=== PATIENT | female | born 1935 | race Caucasian/White ===

== ENCOUNTER 2017-09-18 12:37 | Observation (INO) | payer MEDICARE, OTHER ==
[2017-09-18 13:53] LABS: #Basophils 0.1 thou/uL (0.0-0.2); #Eosinphils 0.1 thou/uL (0.0-0.7); #Lymphocytes 2.2 thou/uL (1.20-3.40); #Neutrophils 6.9 thou/uL (1.40-6.50); %Basophils 0.8 % (0.0-1.0); %Eosinophils 0.5 % (0.0-10.0); %Lymphocytes 21.3 % (21.0-51.0); %Monocytes 10.1 % (0.0-10.0); %Neutrophils 67.3 % (42.0-75.0); Hemoglobin 13.4 g/dL (12.0-16.0); Mean Corpuscular HGB CONC 33.1 g/dL (32.0-36.0); Mean Corpuscular Volume 93.6 fl (81.0-99.0); Mean Platelet Volume 8.5 fL (7.4-10.4); Platelet Count 242 thou/uL (130-400); RBC Distribution Width 11.3 % (11.5-14.5); Red Blood Cell (RBC) Count 4.33 mill/uL (4.20-5.40); White Blood Cell (WBC) Count 10.2 thou/uL (4.8-10.8)
--- NOTE | 2017-09-18 13:59 | RAD ---
SINGLE VIEW CHEST: Date: 09/18/17 COMPARISON: 08/06/15. HISTORY: Frequent falls. FINDINGS: Single view of the chest shows a normal sized cardiomediastinal silhouette. There is no evidence of c onsolidation, mass, or pleural effusion. Degenerative changes are seen in the spine and shoulders. IMPRESSION: No evidence of acute cardiopulmonary disease. POS: [facility]
--- NOTE | 2017-09-18 14:13 | CT ---
CT BRAIN: HISTORY: An 82-year-old with a history of confusion. FINDINGS: Noncontrast-enhanced CT images of the brain are obtained. Images demonstrate some cortical atrophy and deep white matter ischemic changes. No evidence of acut e intracranial masses, hemorrhages, strokes, or contusions seen. Ventricles are of normal size. IMPRESSION: Unremarkable CT brain. POS: [facility]
[2017-09-18 14:20] LABS: ALT (SGPT) 36 U/L (8-55); AST (SGOT) 41 U/L (5-34); Albumin 4.1 g/dL (3.4-4.8); Alkaline Phosphatase 73 U/L (40-150); Anion Gap 15 mmol/L (10-20); BUN (Urea Nitrogen) 13 mg/dL (9.8-20.1); Calc. Creatinine Clearance 0 mL/min (70-130); Calcium 9.3 mg/dL (7.8-10.44); Carbon Dioxide 25 mmol/L (23-31); Chloride 100 mmol/L (98-107); Estimated GFR-MDRD 76; Globulin 3.2 g/dL (2.4-3.5); Glucose 91 mg/dL (83-110); Potassium 3.5 mmol/L (3.5-5.1); Protein, Total 7.3 g/dL (6.0-8.3); Sodium 136 mmol/L (136-145)
[2017-09-18 15:21] LABS: Bilirubin Negative (Negative); Blood, Urine Negative (Negative); Clarity CLOUDY (Clear); Glucose, Urine (Dipstick) Negative (Negative); Leukocyte Large (Negative); Nitrite Negative (Negative); Protein, Urine (Dipstick) 30 mg/dL (Neg-Trace); Specific Gravity, Urine 1.019 (1.002-1.036); pH, Urine 7.5 (5.0-9.0)
[2017-09-18 15:22] LABS: Bacteria/HPF Rare-Few HPF (None Seen); Pathc Cast-AUWi Flag 2.32 (0-2.49)
[2017-09-18 15:24] LABS: RBC/HPF 0-3 HPF (0-3); Yeast-AUWi Flag 43.4 (0-25.0)
[2017-09-18 15:36] LABS: Crystals/HPF None Seen HPF (Negative); Hyaline Casts/LPF 0-3 HYALINE CAST LPF (0-3 Hyaline); Yeast-All Forms None Seen HPF (None Seen)
[2017-09-18 17:24] VITALS: BMI 25.0
[2017-09-18] MEDS ORDERED: Acetaminophen 325 MG TAB PO PRN (17:48)
[2017-09-18] MEDS ORDERED: cefTRIAXone\\ROCEPHIN 1 GM in Sodium Chloride 0.9% 100 ML IVPB SCH (18:15)
[2017-09-18] MEDS: Sodium Chloride 0.9% 1,000 ML IV SCH (18:23)
[2017-09-18] MEDS ORDERED: cefTRIAXone\\ROCEPHIN 1 GM, Syringe 0.4 ML in Sterile Water 9.6 ML SLOW IVP SCH (18:30)
[2017-09-18] MEDS: Docusate 100 MG CAP PO SCH (20:37)
[2017-09-18] MEDS ORDERED: PARoxetine 20 MG TAB PO SCH (21:00)
[2017-09-18] MEDS ORDERED: Rivaroxaban 10 MG TAB PO SCH (21:00)
[2017-09-19] MEDS: Sodium Chloride 0.9% 1,000 ML IV SCH (05:01)
[2017-09-19 06:05] LABS: #Basophils 0.1 thou/uL (0.0-0.2); #Eosinphils 0.1 thou/uL (0.0-0.7); #Lymphocytes 2.5 thou/uL (1.20-3.40); #Monocytes 0.9 thou/uL (0.11-0.59); #Neutrophils 5.9 thou/uL (1.40-6.50); %Basophils 0.8 % (0.0-1.0); %Eosinophils 1.3 % (0.0-10.0); %Lymphocytes 26.2 % (21.0-51.0); %Neutrophils 61.8 % (42.0-75.0); Mean Corpuscular HGB CONC 33.6 g/dL (32.0-36.0); Mean Corpuscular Hemoglobin 30.6 pg (27.0-31.0); Mean Platelet Volume 8.2 fL (7.4-10.4); Platelet Count 217 thou/uL (130-400); RBC Distribution Width 11.2 % (11.5-14.5); Red Blood Cell (RBC) Count 3.92 mill/uL (4.20-5.40); White Blood Cell (WBC) Count 9.5 thou/uL (4.8-10.8)
[2017-09-19 07:05] LABS: Anion Gap 11 mmol/L (10-20); BUN (Urea Nitrogen) 10 mg/dL (9.8-20.1); Calc. Creatinine Clearance 68 mL/min (70-130); Calcium 8.6 mg/dL (7.8-10.44); Carbon Dioxide 25 mmol/L (23-31); Chloride 104 mmol/L (98-107); Estimated GFR-MDRD 86; Glucose 91 mg/dL (83-110); Potassium 3.3 mmol/L (3.5-5.1); Sodium 137 mmol/L (136-145)
[2017-09-19] MEDS: Docusate 100 MG CAP PO SCH (08:43)
[2017-09-19] MEDS ORDERED: Bupropion 150 MG XL TAB PO SCH (09:00)
[2017-09-19] MEDS ORDERED: Potassium Chloride 20 MEQ TAB PO SCH (09:30)
[2017-09-19] MEDS ORDERED: Nebivolol HCl 5 MG TAB PO SCH (12:00)
[2017-09-19] MEDS ORDERED: cefTRIAXone\\ROCEPHIN 1 GM, Syringe 0.4 ML in Sterile Water 9.6 ML SLOW IVP SCH (12:00)
[2017-09-19 12:19] VITALS: TEMP 98.2
[2017-09-19 12:53] VITALS: BP 191/81
--- NOTE | 2017-09-19 12:53 | DIS ---
DATE OF ADMISSION: 09/18/2017 DATE OF DISCHARGE: 09/19/2017 DISCHARGE DIAGNOSES: Dehydration, mild urinary tract infection, and depression and anxiety. HOSPITAL COURSE: Patient is a very pleasant 82-year-old female, who initially presented to the [facility] yesterday for some confusion; however, was noted upon further talking to her that the patient has been very severely depressed given her situation. Patient currently lives with her , who is bedbound due to amputation and the patient has been taking care of him and apparently is becoming dayna y exhausted. Patient has seen a psychiatrist last week, who told the patient's family that she neede d to be taken out of the situation or else she will undergo a psychotic breakdown. Patient's antidep ressants per PCP were increased; however, patient had severe side effects, then her medications were again decreased to her baseline dosage and her Effexor was discontinued, which was a new medication. Patient, initially in the ER, underwent a CAT scan of the head, which was negative. Thyroid was neg ative. In essential, her WBCs and her chemistry panel was completely normal. Her vitamin B12 level was also normal. A vitamin D level is still pending. Cortisol was also normal. The patient was put back on her normal medications. It seems like she did have a UTI in the ER; however, she had many s quamous epithelial cells, most likely not a true UTI. However, the patient was treated with 2 days o f IV and 1 day of p.o. antibiotics. Upon discharge, the patient appears to look much better improvem ent compared to yesterday. I recommended the patient to stay away from her home for the weekend to s alyssa with her family and may be patient already has made arrangements to move into an assisted living, which will take a lot of burden off of her in regard to cooking and cleaning for her . Major nt states that that was the main stressor that was bothering her. DISCHARGE MEDICATIONS: As following, paroxetine 10 mg p.o. at bedtime, Xarelto 20 mg p.o. at bedtime , Bystolic 5 mg p.o. daily, Cipro 250 mg p.o. b.i.d. x1 day, Wellbutrin 150 mg p.o. daily, losartan/h ydrochlorothiazide 50/12.5 mg 1 p.o. daily. Patient will be discharged home. She will follow up wit h her PCP as an outpatient. PHYSICAL EXAMINATION: VITAL SIGNS: 98.2, 93, she is room air 98%, 106/79 blood pressure. GENERAL: She is awake, alert, and oriented x3, appears much more cooperative and much more cohesive. HEENT: Normocephalic, atraumatic. No lymphadenopathy noted. CARDIOVASCULAR: S1 and S2 present. No murmurs, rubs, or gallops. LUNGS: Clear to auscultation. No rhonchi or wheezes noted. ABDOMEN: Soft and nontender. Bowel sounds are present x2. EXTREMITIES: No edema. NEUROLOGIC/PSYCHIATRIC: In terms of neuro and psyche, she is oriented x3, appears to be much more ca lmer. Patient feels better and also family member states that she is at baseline. She is going to be discharged home. Follow up with PCP.
--- NOTE | 2017-09-20 09:45 | HP ---
DATE OF ADMISSION: 09/18/2017 PRIMARY CARE PHYSICIAN: Dr. Dayton Owens. CHIEF COMPLAINT: Acute confusion. HISTORY OF PRESENT ILLNESS: Patient is an 82-year-old female with past medical history of anxiety an d depression who presented in atrial fibrillation on anticoagulation who presented to the ER with acu te confusion. Patient's daughters who are at the bedside stated that the patient has been under a lo t of stress recently. Furthermore, they stated that the patient's is bedbound due to an ampu tation and the patient has been very stressed trying to meet his requirements and his needs. The anabel rossi has been seen by her primary care doctor who recommended a psychiatry evaluation given patient's worsening anxiety and depression. The patient was seen by psychiatry about a couple weeks ago who r ecommended to the family to remove the patient out of her current situation, if not, the patient woul d suffer a psychotic breakdown. Patient's family furthermore also states that she did have some simran tional of new antidepressant medications including Effexor and doubling up some of her current medica tions, which caused her to be very tremulous or tremors and also worsening memory and worsening confu kourtney. Patient currently denies any chest pain, abdominal pain, any nausea, vomiting or diarrhea. Eloy zayas does feel that she has been under lot of stress and she does tell me that in order to help hers elf, she has gone ahead and has registered for them to live in an assisted living, so that she does n ot have to prepare meals for her , which according to her, is very stressful and creates a lot of stress on her especially the meal preparations, going to the groceries, buying groceries so on an d so forth. PAST MEDICAL HISTORY: Anxiety, depression and atrial fibrillation on anticoagulation. PAST SURGICAL HISTORY: Patient has had a postobstructive ileus with an obstruction, which was laparo scopically fixed. SOCIAL HISTORY: The patient denies any smoking, alcohol or drug use. MEDICATIONS: She takes losartan 12.5 mg at noon, Xarelto 20 mg daily, Bystolic 5 mg daily, Paxil 10 mg daily, and Wellbutrin 150 mg daily. REVIEW OF SYSTEMS: The following complete review of systems was negative, unless otherwise mentioned in the HPI or below: Constitutional: Weight loss or gain, ability to conduct usual activities. Skin: Rash, itching. Eyes: Double vision, pain. ENT/Mouth: Nose bleeding, neck stiffness, pain, tenderness. Cardiovascular: Palpitations, dyspnea on exertion, orthopnea. Respiratory: Shortness of breath, wheezing, cough, hemoptysis, fever or night sweats. Gastrointestinal: Poor appetite, abdominal pain, heartburn, nausea, vomiting, constipation, or diarr hea. Genitourinary: Urgency, frequency, dysuria, nocturia. Musculoskeletal: Pain, swelling. Neurologic/Psychiatric: Anxiety, depression. Allergy/Immunologic: Skin rash, bleeding tendency. ALLERGIES: She has no known drug allergies. PHYSICAL EXAMINATION: VITAL SIGNS: Patient, 99.0, 87, 16, 95% on room air, 156/84. GENERAL: She is awake, alert, oriented x3. CARDIOVASCULAR: S1, S2 present. No murmurs, rubs or gallops. ABDOMEN: Soft, nontender. Bowel sounds are present x2. RESPIRATION: Clear. No rhonchi, wheezes noted. EXTREMITIES: No edema. Pedal pulse present x2. NEUROLOGIC: No focal neurological abnormalities noted. PSYCHIATRIC: The patient does have a little bit of tremors. She has good insight; however, she does appear a little depressed or has a flat affect. LABORATORY DATA: WBC of 10.2, hemoglobin of 13.4, hematocrit of 40.5, platelets of 242. Chemistry: Sodium of 136, potassium of 3.5, BUN of 13, creatinine 0.73. Mild elevation of AST at 41. Her daphne min B12 was 1227. TSH was 1.8 and cortisol was 12.70. Her UA that was done in the ER did indicate t hat she did have some leukocyte esterase; however, the patient did have 11-20 squamous epithelial louis ls. ASSESSMENT AND PLAN: The patient is a very pleasant 82-year-old female who initially presented to [facility] for concerns of acute confusion. 1. Acute metabolic encephalopathy, possibly due to her underlying anxiety and depression versus medi cation related versus mild urinary tract infection. We will admit the patient to the hospital [facility] for observations and will give IV hydration. We will continue her medications that were the decr eased aversion of her original antidepressant medication and not her increased medication that was do ne by her PCP. We will continue that and also we will continue IV antibiotics; however, I do not mirian lly think this is a urinary tract infection. It is probably most likely an uncomplicated urinary tra ct infection. CT of the head that was done in the ER, which was negative. Chest x-ray, no acute abn ormalities noted. We will continue to monitor. 2. Atrial fibrillation, rate controlled. We will continue the Xarelto. 3. Deep venous thrombosis prophylaxis. We will put the patient on sequential compression devices or heparin subcu. I spoke with the patient's family, maybe the patient might benefit from either volun teering or registering herself into an inpatient psychiatric facility; however, at this time, the anabel rossi's family feels that if they are able to keep her away from their father for a few days, they fee l that she would improve greatly. I also spoke with the patient, the patient stated that she has bee n under a lot of stress, which is most likely attributed through her 's debility of not helpin g himself due to the amputation. Patient also further states that her moving into an assisted living will help her mentally, which most importantly is that she will not have to prepare meals for her hu sband or do any grocery shopping.
== END 2017-09-19 12:15 | disposition home or self-care (01) ==
LOC: ERS 12:37 → 2SE 15:32
PROVIDERS: ADMIT Internal Medicine; ATTEND Internal Medicine
DX: G93.41 Metabolic encephalopathy (principal); E86.0 Dehydration; N39.0 Urinary tract infection, site not specified; F41.8 Other specified anxiety disorders; I48.91 Unspecified atrial fibrillation; Z79.01 Long term (current) use of anticoagulants; Z79.899 Other long term (current) drug therapy; Z98.890 Other specified postprocedural states
CPT/HCPCS: 70450; 71045; 80048; 80053; 82306; 82533; 82607; 84443; 85025 ×2; 97139 ×2; 97530; 97535; 99285; G0378; G8987; G8988; 36415; 81003; 81015; A4216; J0696

== ENCOUNTER 2018-04-22 14:50 | Observation (INO) | payer MEDICARE, OTHER ==
[2018-04-22 15:19] LABS: #Basophils 0.1 thou/uL (0.0-0.2); #Eosinphils 0.1 thou/uL (0.0-0.7); #Monocytes 0.7 thou/uL (0.11-0.59); #Neutrophils 7.2 thou/uL (1.40-6.50); %Basophils 0.6 % (0.0-1.0); %Eosinophils 0.8 % (0.0-10.0); %Monocytes 6.9 % (0.0-10.0); %Neutrophils 71.7 % (42.0-75.0); Hemoglobin 13.7 g/dL (12.0-16.0); Mean Corpuscular HGB CONC 32.3 g/dL (32.0-36.0); Mean Corpuscular Hemoglobin 29.8 pg (27.0-31.0); Mean Corpuscular Volume 92.2 fL (78.0-98.0); Mean Platelet Volume 8.2 fL (7.4-10.4); Platelet Count 288 thou/uL (130-400); RBC Distribution Width 11.2 % (11.5-14.5); Red Blood Cell (RBC) Count 4.58 mill/uL (4.20-5.40)
[2018-04-22] MEDS ORDERED: hydrALAZINE 20 MG/ML VIAL ONE (15:21)
[2018-04-22] MEDS ORDERED: Nitroglycerin 2% Ointment 1 INCH/1 GM Packet ONE (15:21)
[2018-04-22 15:25] LABS: PTT 33.2 SEC (22.9-36.1); Prothrombin Time 13.6 SEC (12.0-14.7)
--- NOTE | 2018-04-22 15:35 | CT ---
CT OF HEAD NONCONTRAST: Indication: Fall, anticoagulated patient. FINDINGS: There is a prominent right frontal scalp hematoma. No intracranial hemorrhage, mass effect, midline s hift or ventriculomegaly. There is mild chronic microvascular ischemic disease. No depressed calvaria l fracture or pneumocephalus. IMPRESSION: 1. No acute intracranial abnormalities. 2. Prominent sized right frontal scalp hematoma. POS: [facility]
--- NOTE | 2018-04-22 15:51 | CT ---
FACIAL CT NONCONTRAST: INDICATION: Facial injury with pain. FINDINGS: Prominent-size right frontal scalp hematoma is present. There is no retrobulbar hematoma or mass eff ect. No displaced orbital wall fracture is seen. There is no fracture of the maxillary sinus nuñez. No posttraumatic dislocation of either temporomandibular joint. Patient motion does limit evaluati on of the osseous structures of the inferior aspect of the face, notably the mandible precluding reli able assessment in this regard. There is incidental note of a lucency of the odontoid process. Recommend dedicated CT cervical spine for further evaluation. IMPRESSION: 1. No displaced facial fracture is seen. 2. There is incidental note of a lucency at the dens for which fracture is not excluded. Dedicated CT of cervical spine is warranted. 3. Prominent right frontal scalp hematoma extending into the right periorbital region. Findings of report conveyed to Dr. Enrique Ludwig at 1535 hours, 04/22/2018. CODE CR POS: [facility]
[2018-04-22 15:55] LABS: ALT (SGPT) 53 U/L (8-55); AST (SGOT) 77 U/L (5-34); Albumin 4.6 g/dL (3.4-4.8); Alkaline Phosphatase 74 U/L (40-150); Anion Gap 14 mmol/L (10-20); BUN (Urea Nitrogen) 13 mg/dL (9.8-20.1); Bilirubin, Total 0.7 mg/dL (0.2-1.2); CK (CPK) 100 U/L (29-168); Calc. Creatinine Clearance 0 mL/min (70-130); Calcium 9.9 mg/dL (7.8-10.44); Carbon Dioxide 26 mmol/L (23-31); Chloride 97 mmol/L (98-107); Estimated GFR-MDRD 65; Globulin 3.6 g/dL (2.4-3.5); Glucose 93 mg/dL (83-110); Protein, Total 8.2 g/dL (6.0-8.3); Sodium 133 mmol/L (136-145)
[2018-04-22 15:59] LABS: CKMB 2.4 ng/mL (0-6.6); Troponin I Less than 0.010 ng/mL (< 0.028)
--- NOTE | 2018-04-22 16:36 | CT ---
CT CERVICAL SPINE NONCONTRAST: 04/22/18 HISTORY: Neck injury. Fall. FINDINGS: Vertebral body heights are maintained. Minimal degenerative spondylolisthesis at the C3-4 level. Disc space narrowing and osteophytosis are most pronounced at the C4-5 and C5-6 levels. Gas disc phenomen on at the C6-7 level. Cervicothoracic junction is intact. No acute fracture or dislocation. IMPRESSION: Degenerative changes cervical spine. No acute osseous abnormalities are demonstrated. POS: [facility]
[2018-04-22 17:20] VITALS: BMI 28.2
[2018-04-22] MEDS ORDERED: Acetaminophen 325 MG TAB PO PRN (17:54)
[2018-04-22] MEDS ORDERED: hydrALAZINE 20 MG/ML VIAL SLOW IVP PRN (17:59)
[2018-04-22] MEDS ORDERED: Nebivolol HCl 5 MG TAB PO SCH ×3 (18:15→19:30)
[2018-04-22] MEDS: PARoxetine 20 MG TAB PO SCH (20:35)
[2018-04-22] MEDS: Famotidine 20 MG TAB PO SCH (20:35)
[2018-04-22] MEDS: Acetaminophen 500 MG TAB PO PRN (23:05)
--- NOTE | 2018-04-23 02:14 | HP ---
DATE OF ADMISSION: 04/22/2018 PRIMARY CARE PHYSICIAN: Dr. Dayton Owens. CHIEF COMPLAINT: Head trauma with hematoma and hypertension. HISTORY OF PRESENT ILLNESS: Ms. Dorantes is a pleasant 82-year-old female with a past medical histo ry of atrial fibrillation on Xarelto, hypertension, anxiety, and depression, who had presented to the ER with acute trauma to her right side of her face. She was walking at home with her cane and stumb led on the sidewalk and fell to the ground, she had hit her head along with her right upper extremity on the ground. She had denied any chest pain, shortness of breath, or abdominal pain. She had to ed any vision loss, syncope, lightheadedness, or dizziness. She states that she just lost her footin g and fell down. She had noticed the right side of her face around the right eye started to swell up and bruise. It was at that time that her family brought her into the ER. On initial presentation, the patient had a noticeably significant swelling around the right orbit along the right forehead. S he also had several abrasions on right side of face and down the right upper extremity. Some mild br uising on right hand, wrist, and upper arm. She had denied any pain at this time. She was also note d to have a significant blood pressure of 205/98. She was given IV hydralazine. She states that she usually takes Bystolic at home, but was not able to take those prior to coming into the ER. Her ini tial workup included CT of facial bones, which showed a possible finding of dens fracture along with a prominent right frontal scalp hematoma. However, with further studies, a CT of brain was obtained and showed no acute intracranial abnormalities with a prominent-sized right frontal scalp hematoma. CT cervical spine with noncontrast was also obtained and showed no acute osseous abnormality demonstr ated. Plan was to admit the patient under observation status and consult trauma team for further mark luation of symptoms. She had denied any vision loss, blurred vision, headache, dizziness, lightheade dness, chest pain, shortness of breath, nausea, vomiting or any other symptoms at this time. PAST MEDICAL HISTORY: Hypertension, atrial fibrillation on Xarelto. PAST SURGICAL HISTORY: Laparoscopic surgery for small-bowel obstruction, past history of back surger y. SOCIAL HISTORY: Denies smoking, alcohol, or drug use. ALLERGIES: No known drug allergies. MEDICATIONS: Patient reports taking losartan, Xarelto, Bystolic, Paxil, and Wellbutrin, but was unab le to verify doses. REVIEW OF SYSTEMS: Constitutional: Denies any weight loss, weight gain or any ability to conduct us ual activities. Skin: No rash or itching; however, bruising and hematoma noted on the right side of scalp, around right eye, and upper right extremity. Eyes: Denies any pain, double vision, or blurr ed vision. Does report some swelling around right eye. ENT: Denies nose bleeds, neck stiffness or pain. Cardiovascular: Denies chest pain, palpitations, or heart murmur. Does report history of atr ial fibrillation, currently rate controlled. Respiratory: Denies shortness of breath, wheezing, or cough. Gastrointestinal: Denies any abdominal pain, heartburn, nausea, vomiting, constipation, or d iarrhea. Genitourinary: Denies any frequency, urgency, or dysuria. Musculoskeletal: As above. Do es report some diffuse abrasions and bruising along the right upper extremity. Denies any pain, swel ling, or weakness. Neurological/Psychiatric: Does report some anxiety and depression; however, to es any weakness. PHYSICAL EXAMINATION: VITAL SIGNS: BP 205/98, pulse 89, respirations 20, temperature 97.8, O2 saturations 94% on room air. GENERAL: She is awake, alert, and oriented x3, in no acute distress noted. HEENT: Trauma noted, a significant hematoma over right side of the face, over right orbit, and right scalp noted with diffuse abrasions around right eye. EYES: Pupils are equal and reactive to light. HEENT: Extraocular muscles intact. CARDIOVASCULAR: Positive S1, S2 present. No murmurs, rubs, or gallops. Patient currently rate cont rolled on the monitor. ABDOMEN: Soft, nontender. Bowel sounds present. RESPIRATORY: Lungs are clear to auscultation bilaterally. No wheezes, no rhonchi, no rales. EXTREMITIES: No edema. Radial and pedal pulses present x2 bilaterally. Several abrasions noted on right upper extremity with diffuse bruising over the right hand and upper right arm. NEUROLOGIC: No focal deficits noted. Cranial nerves II through XII intact. PSYCHIATRIC: Good mood and affect. LABORATORY DATA: WBC 10.0, RBC 4.58, hemoglobin 13.7, and platelet count 288,000. PT 13.6, INR 1.0, PTT 33.2. Sodium 133, potassium 4.0, creatinine 0.84, estimated GFR 65, glucose 93. Troponin less than 0.010 x1. BNP 177.1, creatine kinase 100, alkaline phosphatase 74. DIAGNOSTIC IMAGING: CT facial bones without contrast showed prominent right frontal scalp hematoma e xtending into the right periorbital region, there was incidental note of a dens fracture with no disp laced facial fractures seen. CT of head showed no acute intracranial abnormalities with a prominent size right frontal scalp hematoma. CT cervical spine, noncontrast, showed degenerative changes throu ghout cervical spine with no acute osseous abnormalities demonstrated. ASSESSMENT AND PLAN: 1. Right scalp hematoma. We will monitor patient clinically overnight, we will recheck a CT of head in the morning. CT facial bones showed possible dens fracture; however, CT cervical spine showed no acute fracture. We will continue patient's home medications; however, will hold Xarelto at this mare e. Trauma team has been consulted. We will place ice pack over hematoma and continue with symptomat ic treatment. 2. History of atrial fibrillation, currently rate controlled. We will continue on home medications; however, will hold Xarelto at this time due to recent fall and hematoma. 3. Hypertension. Continue patient's losartan and Bystolic, will verify dose with pharmacy. We will add IV hydralazine as needed for systolic blood pressure greater than 170. We will monitor patient' s vital signs closely and further adjustments pending her progress. 4. Deep venous thrombosis prophylaxis. We will hold patient's home Xarelto at this time due to katya marleen, continue with sequential compression devices. I spoke with patient and family. We will hold X arelto for now and monitor hemoglobin, trauma team consulted and may need to hold Xarelto for 48 hour s prior to restarting. DISPOSITION: Pending patient progress and further workup. Speaking to family, they are concerned as she is the primary caregiver for her , will possibly consult housing case manager in the morning eyal g with ordering PT/OT, patient may likely benefit from home health services upon discharge.
--- NOTE | 2018-04-23 03:25 | CON ---
DATE OF CONSULTATION: 04/22/2018 REQUESTING PHYSICIAN: Dr. Ludwig. HISTORY OF PRESENT ILLNESS: This is an 82-year-old female, who presented to [facility] status post fall. Per patient, she was walking down the sidewalk, which is naturally sloped when s he became unsteady, tripped and fell, striking her head. There was no loss of consciousness. She wa s seen and evaluated in the emergency room, and all CT scans were negative. However, patient is on X arelto at home for atrial fibrillation. Additionally, she was quite hypertensive. Therefore, she wa s admitted for observation by the [facility] team. Upon my evaluation, the patient states that sh e has no pain and vocalized no complaint. ALLERGIES: None. HOME MEDICATIONS: Include Xarelto 20 mg, losartan 12.5 mg, paroxetine 10 mg b.i.d., Wellbutrin 300 m g, Bystolic 12.5 mg. PAST MEDICAL HISTORY: Significant for hypertension, depression, atrial fibrillation. PAST SURGICAL HISTORY: Hemorrhoidectomy, back surgery and exploratory laparotomy for small-bowel obs truction. SOCIAL HISTORY: Patient lives with her , typically ambulates with a cane. Denies alcohol, to bacco or illicit drug use. FAMILY HISTORY: Noncontributory in this age patient. REVIEW OF SYSTEMS: A 10-point review of systems was performed and negative except as indicated in th e HPI. PHYSICAL EXAMINATION: VITAL SIGNS: Most recent vital signs, blood pressure 162/75, temperature 98.3, pulse 88, respiration s 20-24, O2 sat 97% on room air. GENERAL: Elderly-appearing female, in no acute distress, resting in bed. HEENT: Head, normocephalic. There is large right-sided periorbital ecchymosis and swelling. The pa tient is unable to open her eye independently. Pupils are PERRLA. Extraocular movements are intact. NECK: Supple. Trachea is midline. There was no midline tenderness to palpation. Range of motion i s within normal limits for patient. CHEST/PULMONARY: Chest is atraumatic, nontender to palpation. Normal work of breathing, symmetric r ise. Lungs are clear to auscultation bilaterally. CARDIOVASCULAR: Regular rate and rhythm. No obvious murmurs, rubs or gallops. GASTROINTESTINAL: Abdomen is atraumatic, soft, nontender, nondistended. Bowel sounds are positive. MUSCULOSKELETAL: Moves all extremities x4. Strength 5/5. NEUROLOGIC: No focal deficit is noted. GCS is 15. LABORATORY DATA: WBC 10.0, hemoglobin 13.7, hematocrit 42.3, platelet count 288. INR is 1.0. Sodiu m 133, potassium 4.0, chloride 97, carbon dioxide 26, BUN 13, creatinine 0.84, glucose 93. AST 77, A LT 53. T bilirubin 0.7. Troponin less than 0.010. BNP 177. RADIOLOGIC FINDINGS: CT of the face was negative for bony fracture or dislocation. There was questi on of possible dens fracture recommending further evaluation with dedicated CT C-spine. CT of the C- spine was negative for acute fracture or dislocation. CT of the brain was negative for acute intracr anial abnormality. ASSESSMENT: 1. Status post mechanical fall. 2. Head trauma, on blood thinners. 3. History of atrial fibrillation with chronic anticoagulation. 4. Hypertensive urgency. PLAN: Continue to observe patient closely and monitor for any change in GCS or neuro status. Hypert ension management per primary team. Given negative dedicated CT of C-spine and normal clinical exam, suspect possible dens fracture on CT face is artifact. Pain management with NSAIDs and Tylenol. Pl an of care was discussed with the patient and family at bedside, and all questions were answered at t he time of this dictation. The patient was discussed with trauma attending.
[2018-04-23 06:00] LABS: #Basophils 0.1 thou/uL (0.0-0.2); #Eosinphils 0.1 thou/uL (0.0-0.7); #Lymphocytes 1.8 thou/uL (1.20-3.40); #Monocytes 1.1 thou/uL (0.11-0.59); #Neutrophils 7.9 thou/uL (1.40-6.50); %Basophils 0.8 % (0.0-1.0); %Eosinophils 0.7 % (0.0-10.0); %Lymphocytes 16.7 % (21.0-51.0); %Monocytes 9.8 % (0.0-10.0); Hemoglobin 12.1 g/dL (12.0-16.0); Mean Corpuscular HGB CONC 32.7 g/dL (32.0-36.0); Mean Corpuscular Hemoglobin 29.9 pg (27.0-31.0); Mean Corpuscular Volume 91.4 fL (78.0-98.0); Mean Platelet Volume 8.2 fL (7.4-10.4); Platelet Count 251 thou/uL (130-400); RBC Distribution Width 11.2 % (11.5-14.5); Red Blood Cell (RBC) Count 4.06 mill/uL (4.20-5.40)
[2018-04-23 06:15] LABS: Anion Gap 14 mmol/L (10-20); BUN (Urea Nitrogen) 12 mg/dL (9.8-20.1); Calc. Creatinine Clearance 71 mL/min (70-130); Calcium 8.9 mg/dL (7.8-10.44); Carbon Dioxide 24 mmol/L (23-31); Chloride 96 mmol/L (98-107); Estimated GFR-MDRD 79; Glucose 100 mg/dL (83-110); Potassium 3.6 mmol/L (3.5-5.1); Sodium 130 mmol/L (136-145)
[2018-04-23] MEDS: Acetaminophen 500 MG TAB PO PRN (07:40)
[2018-04-23] MEDS: PARoxetine 20 MG TAB PO SCH ×2 (08:44→20:31)
[2018-04-23] MEDS: Famotidine 20 MG TAB PO SCH ×2 (08:44→20:31)
[2018-04-23] MEDS ORDERED: Nebivolol HCl 5 MG TAB PO SCH ×2 (09:00)
[2018-04-23] MEDS ORDERED: Bupropion 150 MG XL TAB PO SCH (09:00)
--- NOTE | 2018-04-23 09:44 | CT ---
CT BRAIN NONCONTRAST: DATE: 04-23-18 TIME: 8:59 a.m. HISTORY: Follow up head trauma in 82-year-old female on anticoagulation therapy. COMPARISON: 04-22-18 at 3:14 p.m. FINDINGS: There is no midline shift or any other mass effect. There is no evidence of acute intracranial hemor rhage, large cortical infarct, obstructive hydrocephalus, or extraaxial fluid collection. The calvar ium is intact. There is diffuse parenchymal volume loss. There are low attenuation areas in the whi te matter. These are nonspecific, but in a patient of this age, they are probably chronic ischemic w avel matter changes due to microvascular atherosclerosis. There continues to be right frontal lower scalp hematoma, but this has decreased in size. However, there is now a new finding of significant soft tissue swelling and edema (or hemorrhage) in the soft tissues superficial to the right zygomatic arch, extending superiorly to involve the right t emporal scalp. IMPRESSION: 1) No acute intracranial findings. 2) Involutional changes and chronic ischemic white matter changes. 3) Right frontal, acute, traumatic soft tissue scalp hematoma has decreased in size. 4) Acute, traumatic soft tissue edema of the right lateral face has newly appeared. jn POS: [facility]
--- NOTE | 2018-04-23 09:59 | PRG-2 ---
DATE OF SERVICE: 04/23/2018 RESIDENT: Chapis Valentino MD ATTENDING: Dr. Maximo Clarke SUBJECTIVE: This is an 82-year-old female status post fall, found to have a right frontal hematoma. The patient currently on anticoagulation which has been held. Upon exam this morning, the patient was alert and oriented. The patient denied pain. The patient denied vision changes. The patient states that the swelling has improved since yesterday. Upon further discussion with the patient and family the patient states that she has fallen 6 times in the past year. The patient is currently on anticoagulation for atrial fibrillation. OBJECTIVE: VITAL SIGNS: Temperature 98.1, pulse 65, respirations 16, O2 saturation 94% on room air, BP 184/86. GENERAL: Elderly female, in no acute distress, resting in bed, eating breakfast. HEENT: Head normocephalic. There is a right-sided periorbital ecchymosis and mild swelling. The patient is able to open her eye independently. Pupils equal , round, and reactive. Extraocular movements intact. NECK: Supple, trachea midline. RESPIRATORY: Nonlabored breathing, bilateral. CHEST: Symmetrical chest rise. LUNGS: Clear to auscultation bilaterally. CARDIOVASCULAR: Regular rate and rhythm. No murmurs, rubs or gallops. ABDOMEN: Soft, nontender, nondistended. MUSCULOSKELETAL: Moves all extremities x4. Strength 5/5. NEUROLOGIC: Nonfocal exam. GCS 15. PSYCHIATRIC: Normal mood and affect. LABORATORY DATA: WBC 11, hemoglobin 12.1, hematocrit 37.1, platelets 251. Sodium 130, potassium 3.6, chloride 96, BUN 12, creatinine 0.71, calcium 8.9. ASSESSMENT: 1. Status post mechanical fall. 2. Head trauma, on blood thinners. 3. History of atrial fibrillation on chronic anticoagulation. 4. Hypertensive urgency. PLAN: Discussed with the patient and family at the bedside the risks and benefits of anticoagulation for chronic atrial fibrillation. The patient's [id number]- VASc score is 4 points which is equivalent to a 6.7% risk for stroke/ TIA/embolism. Due to the patient's history of 6 falls within the last year, the patient's risk for hemorrhage due to fall is likely much higher than the risk of stroke if not on anticoagulation. We will discuss with the primary team for discontinuing anticoagulation due to the patient's fall risk. Patient and family acknowledged and understood risks and benefits. All questions were asked and answered. We will continue to monitor the patient closely for any change in GCS or neuro status. The patient was getting repeat CT this morning. The patient's pain was adequately controlled. No changes in mental status or GCS. The patient was seen and evaluated by Dr. Clarke at the bedside. DRISS
--- NOTE | 2018-04-23 13:19 | PRG ---
DATE OF SERVICE: 04/23/2018 Mr. Dorantes was admitted to hospital after she had a severe fall and hit her head very hard and has severe ecchymosis on the right side of her face. CT scan has been negative for any subdural hematom a, but there is really a high concern about her actually falling multiple times and really fell hard this time. She is not having chest pain or pressure. Her blood pressure has been high here. PHYSICAL EXAMINATION: VITAL SIGNS: Blood pressure most recent 184/86, pulse in the 60s, it is irregular. LUNGS: Clear. CARDIAC: Irregular, irregular. ABDOMEN: Soft, nontender. PLAN: I reviewed the case. The patient has chronic atrial fibrillation and also has hypertension. Age greater than 75, female status, her risk of stroke is substantial without anticoagulation. [facility] er, certainly would strongly agree with interrupting the Xarelto for some time. I talked to Ms. Jill holden about the possibility of placing a Watchman filter which could necessitate only short term anti coagulation as she falls frequently. After prolonged discussion, I have recommended the followin. Stay off Xarelto for an additional 2 weeks, then resume. 2. She is considering whether to have a Watchman placed. 3. I would not increase the Bystolic dose, her heart rate was in the 60s in the office with atrial f ibrillation recently. She may become bradycardiac. 4. Increase losartan HCT to 100/25 a day. 5. Okay with me to be released home.
--- NOTE | 2018-04-23 15:59 | PDOC.PN ---
- Subjective Encounter Start Date: 04/23/18 Encounter Start Time: 14:00 Patient lying in bed with several family members at bedside. She reports doing well today. No complaints at this time. Repeat CT head was unremarkable this morning. PT recommending rehab. Dr Townsend was contacted today and recommended patient hold anticoagulation for 2 weeks before starting back on Xeralto. - Objective Resuscitation Status: Resuscitation Status FULL:Full Resuscitation MAR Reviewed: Yes Vital Signs & Weight: Vital Signs (12 hours) Temp Pulse Pulse Pulse Resp BP BP 04/23/18 14:40 75 73 171/88 H 04/23/18 11:27 98.5 F 75 20 04/23/18 07:28 98.1 F 65 16 04/23/18 05:10 67 18 170/81 H BP BP Pulse Ox 04/23/18 14:40 211/96 H 04/23/18 11:27 159/77 H 94 L 04/23/18 07:28 184/86 H 94 L 04/23/18 05:10 95 Weight Weight 164 lb 6.4 oz I&O: 04/22/18 04/23/18 04/24/18 06:59 06:59 06:59 Intake Total 300 Output Total 600 Balance -300 Result Diagrams: 04/23/18 05:35 04/23/18 05:35 Radiology Reviewed by me: Yes Phys Exam - Physical Examination Constitutional: NAD HEENT: PERRLA, moist MMs, sclera anicteric, oral pharynx no lesions Hematoma noted right side scalp, diffuse bruising around right orbit, left orbit and right ear. Neck: no nodes, no JVD, supple Respiratory: no wheezing, no rales, no rhonchi, clear to auscultation bilateral Cardiovascular: RRR, no significant murmur, no rub Gastrointestinal: soft, non-tender, no distention, positive bowel sounds Musculoskeletal: no edema, pulses present Neurological: non-focal, normal sensation, moves all 4 limbs Lymphatic: no nodes Psychiatric: normal affect, A&O x 3 Skin: no rash, normal turgor, cap refill <2 seconds Dx/Plan (1) Traumatic hematoma of face Code(s): S00.83XA - CONTUSION OF OTHER PART OF HEAD, INITIAL ENCOUNTER Status : Acute (2) Atrial fibrillation with controlled ventricular rate Code(s): I48.91 - UNSPECIFIED ATRIAL FIBRILLATION Status: Acute (3) Hypertension Code(s): I10 - ESSENTIAL (PRIMARY) HYPERTENSION Status: Acute - Plan cont current plan of care, plan discussed w/ family, PT/OT, DVT proph w/SCDs * Dr Townsend recommended holding Xarelto due to hematoma for2 weeksbefore restarting. * Home medications adjusted, Bystolic decreased to 5mg and losartan/HCTZ increased to 100/25mg * Monitor patient vitals and labs * Repeat CT unremarkable * PT recommending rehab, accepted, but awaiting bed availability.
[2018-04-23 16:29] VITALS: TEMP 97.8
[2018-04-23 21:47] VITALS: BP 134/91
[2018-04-24] MEDS ORDERED: Losartan/Hydrochlorothiazide 100 mg/25 mg Tablet PO SCH (09:00)
[2018-04-24] MEDS ORDERED: Nebivolol HCl 5 MG TAB PO SCH (09:00)
--- NOTE | 2018-04-24 12:46 | DIS ---
DATE OF ADMISSION: 04/22/2018 DATE OF DISCHARGE: 04/23/2018 DISCHARGE DIAGNOSES: 1. Right-sided scalp hematoma, stable. 2. History of atrial fibrillation, currently rate controlled, stable. 3. Hypertension, stable. 4. Fall, stable. CONSULTATIONS: Trauma surgery, Dr. Clarke; Cardiology, Dr. Townsend. PERTINENT LABORATORY AND DIAGNOSTIC FINDINGS: WBC 11.0, RBC 4.06, hemoglobin 12.1. PT 13.6, INR 1.0, PTT 33.2. Sodium 130, potassium 3.6, creatinine 0.71, GFR 79, glucose 100. Troponin less than 0.010. BNP 177.1. CT of facial bone showed a prominent right frontal scalp hematoma extending into the right periorbital region, also showed incidental finding of a possible dens fracture, which was nondisplaced, nondisplaced facial fracture or no facial fracture seen. CT of head was unremarkable. CT cervical spine ruled out C2 fracture and no other acute fractures at this time. HOSPITAL COURSE: Ms. Dorantes is a pleasant 82-year-old female who had presented to [facility] due to recent fall, she was walking on her sidewalk with her cane and lost her balance and fell to the ground. She had struck her head on the pavement along with her right upper extremity. She had reported to the ER with significant hematoma to the right- sided scalp. Diffuse bruising over right upper extremity. She had a history of atrial fibrillation and was taking Xarelto for anticoagulation, this was stopped upon admission. She was then admitted overnight for close monitoring. CBC was closely monitored; however, hemoglobin remained stable throughout the hospital course. Repeat CT in the morning was obtained and was unremarkable for any brain bleed. During hospital course, Trauma Surgery were consulted for further evaluation of hematoma, they had recommended holding Xarelto due to risk of fall. Patient had reported several falls over the last 12 months at home and this being the most significant. Her primary directory compiler is Dr. Townsend was contacted and he came and saw her during the hospital course. He also recommended holding Xarelto due to current hematoma and fall and patient fall risk. Dr. Townsend and patient will meet at a later date to discuss further options. Due to the patient's elevated blood pressure, Dr. Townsend did increase her home dose of losartan/hydrochlorothiazide 100/25 mg daily. Also, due to risk for bradycardia, he had lowered her Bystolic from 12.5 down to 5 mg daily. She had tolerated this change well. Due to breakthrough hypertension, she was started on hydralazine 10 mg every 6 hours as needed for further elevated blood pressures. She was seen and examined prior to discharge with family at bedside, there was concern of patient's overall deconditioning, therefore physical therapy services were consulted. Physical therapy worked with patient during hospital course and recommended patient to seek rehabilitation services post-discharge. air operations manager was consulted for further arrangements, there was a bed offer made available for [facility] rehabilitation. She had denied any chest pain, shortness of breath or abdominal pain. No palpitations. She denied any headache, blurred vision, or dizziness. She was found to be medically stable for discharge, she was discharged to [facility] on 04/23/2018. DISCHARGE MEDICATIONS: 1. Losartan/hydrochlorothiazide 100 mg/25 mg oral daily. 2. Bystolic 5 mg oral daily. 3. Hydralazine 10 mg oral 4 times daily as needed for systolic blood pressure greater than 170. 4. Acetaminophen 1000 mg every 4 hours as needed for pain. 5. Paroxetine 10 mg oral b.i.d. 6. Wellbutrin-XL 300 mg oral daily. FOLLOWUP: The patient is to follow up with her primary care physician, Dr. Dayton Owens in 1-2 weeks, she is also to follow up with her primary directory compiler , Dr. Townsend in 4 weeks. CONDITION ON DISCHARGE: Stable. DIET: Heart healthy. ACTIVITY: As tolerated with assistance with further assistive devices such as walker. DISPOSITION: Discharged to [facility] on 04/23/2018. DRISS
== END 2018-04-23 21:03 ==
LOC: ERS 14:50 → 2SW 17:17
PROVIDERS: ADMIT Internal Medicine Infectious Disease; ATTEND Internal Medicine Infectious Disease
DX: S00.03XA Contusion of scalp, initial encounter (principal); S00.11XA Contusion of right eyelid and periocular area, initial encounter; S00.211A Abrasion of right eyelid and periocular area, initial encounter; I48.2 Chronic atrial fibrillation; I16.0 Hypertensive urgency; I10 Essential (primary) hypertension; F41.9 Anxiety disorder, unspecified; F32.9 Major depressive disorder, single episode, unspecified; Z79.01 Long term (current) use of anticoagulants; Z79.899 Other long term (current) drug therapy; W01.198A Fall on same level from slipping, tripping and stumbling with subsequent striking against other object, initial encounter
CPT/HCPCS: 70450 ×2; 70486; 72125; 80048; 80053; 82550; 82553; 83880; 84484; 85025 ×2; 85610; 85730; 93005; 96374; 97116; 97139; 99285; G0378 ×2; G8978; G8979; 36415; J0360

== ENCOUNTER 2018-04-29 11:16 | Inpatient (IN) | payer MEDICARE, OTHER ==
[2018-04-29 11:58] LABS: #Basophils 0.1 thou/uL (0.0-0.2); #Eosinphils 0.1 thou/uL (0.0-0.7); #Lymphocytes 1.7 thou/uL (1.20-3.40); #Monocytes 1.1 thou/uL (0.11-0.59); #Neutrophils 8.5 thou/uL (1.40-6.50); %Basophils 0.6 % (0.0-1.0); %Eosinophils 0.5 % (0.0-10.0); %Lymphocytes 14.6 % (21.0-51.0); %Monocytes 9.6 % (0.0-10.0); %Neutrophils 74.7 % (42.0-75.0); Hemoglobin 11.3 g/dL (12.0-16.0); Mean Corpuscular HGB CONC 31.3 g/dL (32.0-36.0); Mean Corpuscular Hemoglobin 28.3 pg (27.0-31.0); Mean Corpuscular Volume 90.4 fL (78.0-98.0); Mean Platelet Volume 7.7 fL (7.4-10.4); Platelet Count 333 thou/uL (130-400); White Blood Cell (WBC) Count 11.3 thou/uL (4.8-10.8)
[2018-04-29 12:08] LABS: CKMB 4.7 ng/mL (0-6.6); Troponin I Less than 0.010 ng/mL (< 0.028)
[2018-04-29 12:09] LABS: ALT (SGPT) 24 U/L (8-55); AST (SGOT) 24 U/L (5-34); Albumin 3.6 g/dL (3.4-4.8); Alkaline Phosphatase 62 U/L (40-150); Anion Gap 14 mmol/L (10-20); BUN (Urea Nitrogen) 15 mg/dL (9.8-20.1); Bilirubin, Total 0.9 mg/dL (0.2-1.2); CK (CPK) 135 U/L (29-168); Calc. Creatinine Clearance 0 mL/min (70-130); Calcium 9.1 mg/dL (7.8-10.44); Carbon Dioxide 26 mmol/L (23-31); Chloride 97 mmol/L (98-107); Estimated GFR-MDRD 75; Glucose 103 mg/dL (83-110); Potassium 3.6 mmol/L (3.5-5.1); Protein, Total 6.6 g/dL (6.0-8.3); Sodium 133 mmol/L (136-145)
--- NOTE | 2018-04-29 12:28 | CT ---
CT HEAD NONCONTRAST: HISTORY: Altered mental status. Recent trauma. COMPARISON: 04/27/2018. FINDINGS: There is no evidence of acute intracranial hemorrhage or infarct. Bifrontal subdural hygromas are si milar in appearance to the prior study. Mild chronic ischemic small-vessel disease and significant d iffuse cortical atrophy. No mass effect or shift of midline structures. Right frontal scalp injury is similar in appearance to the prior study. Visualized paranasal sinuses remain well aerated. IMPRESSION: No acute intracranial abnormalities are demonstrated. POS: [facility]
--- NOTE | 2018-04-29 12:30 | RAD ---
CHEST 1 VIEW: COMPARISON: 09/18/2017. HISTORY: Altered mental status. FINDINGS: Enlarged cardiac silhouette. The pulmonary vessels and hilum are normal. Costophrenic angles are cl ear. Chronic change of the lung parenchyma without definite consolidation or mass. No pneumothorax. Chronic changes involving both shoulders. IMPRESSION: Cardiomegaly. No acute cardiopulmonary process. POS: [facility]
[2018-04-29 13:40] LABS: Bilirubin Negative (Negative); Blood, Urine Negative (Negative); Clarity CLEAR (Clear); Glucose, Urine (Dipstick) Negative (Negative); Leukocyte Negative (Negative); Nitrite Negative (Negative); Protein, Urine (Dipstick) Negative (Neg-Trace); Specific Gravity, Urine 1.013 (1.002-1.036); pH, Urine 6.5 (5.0-9.0)
[2018-04-29 14:55] LABS: Troponin I Less than 0.010 ng/mL (< 0.028)
[2018-04-29] MEDS ORDERED: Ondansetron ODT 4 MG TAB PO PRN (16:23)
[2018-04-29] MEDS ORDERED: hydrALAZINE 10 MG TAB PO PRN (16:23)
[2018-04-29] MEDS ORDERED: Ondansetron PF 4 MG/2 ML Vial IVP PRN (16:23)
[2018-04-29] MEDS ORDERED: Lorazepam 2 MG/ML VIAL SLOW IVP PRN (16:23)
[2018-04-29] MEDS ORDERED: Sodium Chloride 0.9% 1,000 ML IV SCH (16:30)
[2018-04-29 17:02] VITALS: BMI 27.2
[2018-04-29] MEDS ORDERED: Lorazepam 2 MG/ML VIAL SLOW IVP SCH (18:15)
--- NOTE | 2018-04-29 19:14 | HP ---
DATE OF ADMISSION: 04/29/2018 PRIMARY CARE PHYSICIAN: Dr. Dayton Owens. CHIEF COMPLAINT: Confusion. HISTORY OF PRESENT ILLNESS: This is an 82-year-old female who presents to [facility] in transfer from inpatient rehabilitation for increasing confusion over the last 48 -72 hours. The family provides the majority of the history in conjunction with review of the electro dhaval medical record from the emergency room and discussions with the ER attending. The patient was re cently admitted to [facility] from 04/22/2018 to 04/24/2018 status post fall with closed hea d injury, on chronic anticoagulation. The patient underwent extensive evaluation including multiple imaging modalities of the brain showing no acute intracranial process. The patient had been previous ly treated with Xarelto in the context of chronic atrial fibrillation, which was discontinued due to the fall and head trauma. Due to patient's overall deconditioned status and history of falls, the deidra zayas was deemed an appropriate candidate for inpatient rehabilitation. The patient had been partici pating in physical and occupational therapy; however, became increasingly confused and unable to part icipate. The patient normally is alert and oriented x3, able to participate, identify her own medica tions and make healthcare decisions on her own. The family states that she is unable to perform any of these activities, becoming increasingly unsteady on her feet, jittery, shaking and talking nonsens ical sentences. The patient also noted some hallucinations per family report. The patient apparentl ling has not had regular night of sleep in the last 72 hours and was recently given Risperdal on the carlos e of admission. No other specific change to her chronic medications was noted; however, the patient was apparently diagnosed with mild cystitis and given ciprofloxacin in the last 24 hours. The isaiah oscar's family relates that she normally ambulates with a rolling walker or cane, but has had prior falls in the past. The patient had recently transitioned to assisted living at [facility] due to increa sed stress and inability to care for her . In the emergency room, the patient underwent gener al evaluation including repeat CT imaging of the brain showing no acute intracranial process. Portab le chest imaging also was negative. PAST MEDICAL HISTORY: 1. Mechanical fall with closed head injury, 04/2018. 2. Chronic atrial fibrillation with prior anticoagulation with Xarelto, currently on hold. 3. Hypertension. 4. History of repetitive falls. 5. Anxiety/depression. 6. History of confusion. PAST SURGICAL HISTORY: 1. Status post laparoscopic repair for small-bowel obstruction. 2. Status post back surgery. CURRENT MEDICATIONS: 1. Tylenol 1000 mg p.o. q.4-6 hours p.r.n. 2. Wellbutrin-XL 300 mg p.o. daily. 3. Paroxetine 10 mg p.o. b.i.d. 4. Hydralazine 10 mg p.o. q.i.d. 5. Losartan/HCTZ 100/25 mg 1 tab p.o. daily. 6. Bystolic 5 mg p.o. daily. ALLERGIES: No known drug allergies. FAMILY HISTORY: Positive for hypertension. SOCIAL HISTORY: . Previously residing at [facility]. No current alcohol, tobacco or illicit drug use. Ambulatory with use of rolling walker or cane. History of multiple fal ls over the last year. Accompanied by her daughter and granddaughter in the hospital. REVIEW OF SYSTEMS: The following complete review of systems was negative, unless otherwise mentioned in the HPI or below: Constitutional: Weight loss or gain, ability to conduct usual activities. Sk in: Rash, itching. Eyes: Double vision, pain. ENT/Mouth: Nose bleeding, neck stiffness, pain, te nderness. Cardiovascular: Palpitations, dyspnea on exertion, orthopnea. Respiratory: Shortness of breath, wheezing, cough, hemoptysis, fever or night sweats. Gastrointestinal: Poor appetite, abdom inal pain, heartburn, nausea, vomiting, constipation, or diarrhea. Genitourinary: Urgency, frequenc y, dysuria, nocturia. Musculoskeletal: Pain, swelling. Neurologic/Psychiatric: Anxiety, depressio n. Allergy/Immunologic: Skin rash, bleeding tendency. PHYSICAL EXAMINATION: VITAL SIGNS: On admission, blood pressure 152/89, pulse 87, respiratory rate 16, temperature 99 degr ees Fahrenheit, O2 saturation 98% on room air. GENERAL APPEARANCE: This is an 82-year-old female, alert to name and mumbling words when q uestioned directly. HEENT: Large ecchymosis and contusion noted of the right frontal temporal region. No active bleed a ppreciated. Mild edema of the periorbital region. Eyes, extraocular muscles are intact. No scleral icterus, no conjunctival injection. Nares patent. OP is clear. Upper and lower dentures noted. NECK: Supple, with ecchymosis noted on the anterior and lateral aspects of the upper neck. No JVD a ppreciated. No palpable mass. Full active and passive range of motion noted. CHEST: Lungs are clear to auscultation bilaterally. CARDIOVASCULAR: S1, S2 with irregular rate and rhythm. ABDOMEN: Rounded, soft, nontender, nondistended. Bowel sounds are positive in all four quadrants. There is no hepatosplenomegaly, no abdominal bruits, no rebound or guarding appreciated. EXTREMITIES: Warm and dry with fair turgor. No clubbing, cyanosis or asymmetric edema appreciated. Pulses are palpable distally at the dorsalis pedis, posterior tibial and popliteal arteries bilatera lly. Capillary refill less than 2 seconds. NEUROLOGIC: Alert and oriented x1 to person. Moves all extremities. Mild intention tremor noted. Not observed ambulatory during this exam. Does not follow commands appropriately. PERTINENT LABORATORY AND X-RAY FINDINGS: Sodium 133, potassium 3.6, chloride 97, CO2 of 26, BUN 15, creatinine 0.74, estimated GFR 75, glucose 103, calcium 9.1. LFTs within normal limits. Serum tong ia level 33, troponin I negative x2. Albumin 3.6. CBC showed a white blood cell count 11.3, hemoglo bin 11.3, hematocrit 36.2, platelet count 333 with normal differential. Urinalysis negative. CT of the brain without contrast dated 04/29/2018 showed no acute intracranial process. Mild ischemic whit e matter changes noted. No mass effect noted. Right frontal scalp injury noted, similar in appearan ce to prior CT imaging. Portable chest x-ray dated 04/29/2018 showed no acute cardiopulmonary proces s. EKG dated 04/29/2018 by my interpretation shows atrial fibrillation with controlled rate in the 7 0s. Normal R-wave progression noted in the precordial leads. Normal axis. No acute ST-T wave russo es appreciated. ASSESSMENT AND PLAN: 1. Acute metabolic encephalopathy. The patient will be admitted to the medical floor. Suspect mult ifactorial insult including recent closed head injury with likely postconcussive syndrome in addition to medication changes and iatrogenic changes related to medication effect and sleep deprivation. We will initiate Ativan 1 mg IV q.6 hours p.r.n. with agitation and anxiety. Check MRI of the brain to rule out underlying cerebrovascular accident. Check TSH and magnesium level in the a.m. No current evidence to suggest focal infectious process. Sitter for one-on-one observation. 2. Fall with closed head injury. Stable currently. Likely postconcussive syndrome. See #1 above. 3. Chronic atrial fibrillation. Rate controlled currently. Continue off anticoagulation due to mul tiple falls and recent closed head injury. 4. Hypertension, labile. Resume home antihypertensive regimen and titrate to optimal clinical respo nse. 5. Anxiety/depression. Resume paroxetine 10 mg b.i.d. and Wellbutrin-XL 300 mg daily. 6. Deconditioning. PT evaluation for general functional assessment. Fall risk precautions. 7. Prophylaxis. Sequential compression devices while in bed. Pepcid 20 mg p.o. b.i.d. 8. Code status is FULL. Surrogate medical decision maker is the patient's daughter.
[2018-04-29] MEDS: Lorazepam 2 MG/ML VIAL SLOW IVP PRN (21:50)
[2018-04-29] MEDS: Famotidine 20 MG TAB PO SCH (22:38)
[2018-04-29] MEDS: PARoxetine 20 MG TAB PO SCH (22:39)
[2018-04-30] MEDS: Lorazepam 2 MG/ML VIAL SLOW IVP PRN ×3 (04:15→19:50)
[2018-04-30 04:45] LABS: Band 4 % (5-11); Hemoglobin 11.7 g/dL (12.0-16.0); Lymphocytes 16 % (21-51); MDiff Complete? YES; Mean Corpuscular HGB CONC 32.8 g/dL (32.0-36.0); Mean Corpuscular Hemoglobin 30.2 pg (27.0-31.0); Mean Corpuscular Volume 92.1 fL (78.0-98.0); Mean Platelet Volume 7.6 fL (7.4-10.4); Monocytes 7 % (0-10); Neutrophil 73 % (42-75); Platelet Count 312 thou/uL (130-400); RBC Distribution Width 11.2 % (11.5-14.5); Red Blood Cell (RBC) Count 3.88 mill/uL (4.20-5.40); White Blood Cell (WBC) Count 11.8 thou/uL (4.8-10.8)
[2018-04-30 04:46] LABS: ALT (SGPT) 22 U/L (8-55); AST (SGOT) 25 U/L (5-34); Albumin 3.6 g/dL (3.4-4.8); Alkaline Phosphatase 63 U/L (40-150); Anion Gap 15 mmol/L (10-20); BUN (Urea Nitrogen) 13 mg/dL (9.8-20.1); Calc. Creatinine Clearance 67 mL/min (70-130); Calcium 8.9 mg/dL (7.8-10.44); Carbon Dioxide 22 mmol/L (23-31); Chloride 101 mmol/L (98-107); Estimated GFR-MDRD 78; Globulin 3.1 g/dL (2.4-3.5); Glucose 86 mg/dL (83-110); Magnesium 2.1 mg/dL (1.6-2.6); Protein, Total 6.7 g/dL (6.0-8.3); Sodium 134 mmol/L (136-145)
[2018-04-30] MEDS: hydrALAZINE 20 MG/ML VIAL SLOW IVP PRN (08:37)
[2018-04-30] MEDS ORDERED: Nebivolol HCl 5 MG TAB PO SCH ×2 (09:00→13:15)
[2018-04-30] MEDS: Sodium Chloride 0.9% 1,000 ML IV SCH (09:30)
[2018-04-30] MEDS: Bupropion 150 MG XL TAB PO SCH (11:07)
[2018-04-30] MEDS: Famotidine 20 MG TAB PO SCH ×2 (11:08→19:55)
[2018-04-30] MEDS: Losartan/Hydrochlorothiazide 100 mg/25 mg Tablet PO SCH (11:08)
[2018-04-30] MEDS: PARoxetine 20 MG TAB PO SCH ×2 (11:09→19:55)
--- NOTE | 2018-04-30 12:48 | PDOC.PN ---
- Subjective Encounter Start Date: 04/30/18 Encounter Start Time: 12:40 Subjective: f/u for AMS, encephalopathy of unclear etiology likely multifactorial. -: Remains confused, minimally verbal. - Objective Resuscitation Status: Resuscitation Status FULL:Full Resuscitation MAR Reviewed: Yes Vital Signs & Weight: Vital Signs (12 hours) Temp Pulse Resp BP BP Pulse Ox 04/30/18 11:22 98.4 F 104 H 28 H 137/71 93 L 04/30/18 09:00 105 H 140/65 04/30/18 08:37 104 H 181/81 H 04/30/18 08:00 98.3 F 104 H 28 H 181/81 H 90 L Weight Weight 158 lb 11.2 oz Result Diagrams: 04/30/18 04:11 04/30/18 04:11 Additional Labs: Microbiology 04/29/18 11:35 Venous blood - Right Arm Blood Culture - Preliminary Specimen has been received and culture in progress. No Growth to date. Laboratory Tests 04/29/18 04/29/18 11:35 11:35 WBC 11.3 H Hgb 11.3 L Sodium 133 L Radiology Reviewed by me: Yes (MRI brain - pending) Phys Exam - Physical Examination does not respond to name or track with eyes, tremulous ecchymosis of R forehead, face and neck HEENT: PERRLA, sclera anicteric Neck: no nodes, no JVD, supple, full ROM Respiratory: no wheezing, no rales, no rhonchi, clear to auscultation bilateral tachycardic S1, S2 Cardiovascular: no significant murmur, no rub, gallop Gastrointestinal: soft, non-tender, no distention, positive bowel sounds Musculoskeletal: no edema, pulses present resting tremor of upper extremities Neurological: moves all 4 limbs A x O x O Skin: normal turgor, cap refill <2 seconds Dx/Plan (1) Acute metabolic encephalopathy Code(s): G93.41 - METABOLIC ENCEPHALOPATHY Status: Acute Comment: Persistent , unclear etiology but likely multifactorial, will attempt to titrate Ativan dosing and monitor clinically, MRI brain completed with interpretation pending, continue IVF's (2) Dehydration Code(s): E86.0 - DEHYDRATION Status: Acute Comment: continue IVF's (3) Traumatic hematoma of face Code(s): S00.83XA - CONTUSION OF OTHER PART OF HEAD, INITIAL ENCOUNTER Status : Acute Comment: s/p fall, supportive mgmt (4) Closed head injury with concussion Code(s): S06.0X9A - CONCUSSION W LOSS OF CONSCIOUSNESS OF UNSP DURATION, INIT Status: Acute Comment: suspected given recent fall and head injury (5) Hypertension Code(s): I10 - ESSENTIAL (PRIMARY) HYPERTENSION Status: Chronic Qualifiers: Hypertension type: essential hypertension Qualified Code(s): I10 - Essential (primary) hypertension Comment: Labile, increase Bystolic 10mg daily (6) Chronic atrial fibrillation Code(s): I48.2 - CHRONIC ATRIAL FIBRILLATION Status: Chronic Comment: Rate variable, increase Bystolic 10mg daily, no anticoagulation due to falls - Plan PT/OT, social human services assistants, DVT proph w/SCDs Continue supportive mgmt -: Titrate Ativan dosing -: Increase Bystolic 10mg daily -: MRI brain performed with interpretation pending -: Palliative care consult/Family contemplating hospice options * .
--- NOTE | 2018-04-30 14:25 | MRI ---
MRI BRAIN WITH AND WITHOUT CONTRAST: History: Altered mental status. Recent injury. Comparison: Multiple prior CTs, the most recent 04-29-18. FINDINGS: There has been interval mild size increase in the bilateral subdural hygromas which measure up to 6 m m along both convexities. There is some mild mass effect with centralization of the frontal and tempo ral lobes bilaterally. No evidence of obstructive hydrocephalus. The intraventricular size is normal for age. No dislocation. On the diffusion weighted imaging sequence, there are no abnormalities of diffusion restriction. This is confirmed on the ADC map. The gradient echo hemorrhage sequence is without focal hemorrhage. [place] flow voids are maintained. Moderate microvascular ischemic changes in the subcortical and deep white matter as well as the periv entricular white matter. Right forehead hematoma is slowly improving. No abnormal focal area of enhancement although motion does limit this evaluation. IMPRESSION: Mild size increase in bilateral subdural hygromas without hemorrhage. There is mild centralization of the frontal, temporal and parietal lobes without evidence of obstruction. POS: [facility]
--- NOTE | 2018-04-30 16:42 | PDOC.EVN ---
Event Note - Event Note Event Note: ACP note: Discussed goals of care and code status with all the daughters. Reviewed current clinical situation and persistent encephalopathy likely multifactorial. Family states pt is a DNR status and did not want aggressive intervention. They realize that their mother's current situation may progress and worsen and would consider hospice/palliative measures if their mother does not improve substantially after supportive care. All questions answered and family verbalized understanding with current plan of care. Total ACP time: 15min
[2018-05-01] MEDS: Lorazepam 2 MG/ML VIAL SLOW IVP PRN (04:22)
[2018-05-01] MEDS: Sodium Chloride 0.9% 1,000 ML IV SCH (04:24)
[2018-05-01] MEDS: hydrALAZINE 20 MG/ML VIAL SLOW IVP PRN ×2 (05:00→09:37)
[2018-05-01] MEDS: Nebivolol HCl 5 MG TAB PO SCH (09:22)
[2018-05-01] MEDS: Bupropion 150 MG XL TAB PO SCH (09:23)
[2018-05-01] MEDS: Losartan/Hydrochlorothiazide 100 mg/25 mg Tablet PO SCH (09:23)
[2018-05-01] MEDS: PARoxetine 20 MG TAB PO SCH ×2 (09:23→21:10)
[2018-05-01] MEDS: Famotidine 20 MG TAB PO SCH ×2 (09:23→21:10)
--- NOTE | 2018-05-01 11:51 | PDOC.PN ---
- Subjective Encounter Start Date: 05/01/18 Encounter Start Time: 11:49 Subjective: nsg notes rev, nehemias ovn, pt napping, sitter at bedside, tray shows she ate -: half a yogurt for breakfast - Objective Resuscitation Status: Resuscitation Status DNR:Do Not Resuscitate Vital Signs & Weight: Vital Signs (12 hours) Temp Pulse Resp Pulse Ox 05/01/18 09:37 127 H 05/01/18 08:00 97.7 F 127 H 24 H 97 05/01/18 05:00 92 Weight Weight 158 lb 11.2 oz I&O: 04/30/18 05/01/18 05/02/18 06:59 06:59 06:59 Intake Total 825 Balance 825 Result Diagrams: 04/30/18 04:11 04/30/18 04:11 Phys Exam - Physical Examination Constitutional: NAD lying in hospital bed Dx/Plan - Plan - Physical Examination ecchymosis of R forehead, face and neck Respiratory: no wheezing, no rales, no rhonchi, clear to auscultation bilateral tachycardic S1, S2 Cardiovascular: no significant murmur, no rub, gallop Gastrointestinal: no distention, positive bowel sounds Musculoskeletal: no edema, pulses present Dx/Plan (1) Acute metabolic encephalopathy Code(s): G93.41 - METABOLIC ENCEPHALOPATHY Status: Acute Comment: Persistent , unclear etiology but likely multifactorial, will attempt to titrate Ativan dosing down and monitor clinically, MRI brain completed with mild increase in size of subdural hygromas, continue IVF's (2) Dehydration Code(s): E86.0 - DEHYDRATION Status: Acute Comment: continue IVF's (3) Traumatic hematoma of face Code(s): S00.83XA - CONTUSION OF OTHER PART OF HEAD, INITIAL ENCOUNTER Status : Acute Comment: s/p fall, supportive mgmt (4) Closed head injury with concussion Code(s): S06.0X9A - CONCUSSION W LOSS OF CONSCIOUSNESS OF UNSP DURATION, INIT Status: Acute Comment: suspected given recent fall and head injury (5) Hypertension Code(s): I10 - ESSENTIAL (PRIMARY) HYPERTENSION Status: Chronic Qualifiers: Hypertension type: essential hypertension Qualified Code(s): I10 - Essential (primary) hypertension Comment: Labile, increase Bystolic 10mg daily (6) Chronic atrial fibrillation Code(s): I48.2 - CHRONIC ATRIAL FIBRILLATION Status: Chronic Comment: Rate variable, increase Bystolic 10mg daily, no anticoagulation due to falls - Plan PT/OT, adoption services manager, DVT proph w/SCDs -: Palliative care consult/Family contemplating hospice options d/w bedside nsg Review of Systems - Medications/Allergies Allergies/Adverse Reactions: Allergies Allergy/AdvReac Type Severity Reaction Status Date / Time No Known Drug Allergies Allergy Verified 08/04/15 21:52 Medications: Current Medications Acetaminophen (Tylenol) 1,000 mg PO Q6H PRN PRN Reason: Mild Pain (1-3) Bupropion HCl (Wellbutrin Xl) 300 mg PO DAILY [facility] Last Admin: 05/01/18 09:23 Dose: 300 mg Famotidine (Pepcid) 20 mg PO BID [facility] Last Admin: 05/01/18 09:23 Dose: 20 mg HCTZ/Losartan Potassium (Hyzaar 100/25) 1 tab PO DAILY [facility] Last Admin: 05/01/18 09:23 Dose: 1 tab Hydralazine HCl (Apresoline) 10 mg SLOW IVP Q4H PRN PRN Reason: SBP > 180 and HR < 70 Last Admin: 05/01/18 09:37 Dose: 10 mg Hydralazine HCl (Apresoline) 10 mg PO QID PRN PRN Reason: Hypertension Sodium Chloride (Normal Saline 0.9%) 1,000 mls @ 75 mls/hr IV .[id number] [facility] Last Admin: 05/01/18 04:24 Dose: 1,000 mls Lorazepam (Ativan) 2 mg SLOW IVP Q6H PRN PRN Reason: Anxiety/Agitation Last Admin: 05/01/18 04:22 Dose: 2 mg Nebivolol (Bystolic) 10 mg PO DAILY [facility] Last Admin: 05/01/18 09:22 Dose: 10 mg Ondansetron HCl (Zofran Odt) 4 mg PO Q6H PRN PRN Reason: Nausea/Vomiting Ondansetron HCl (Zofran) 4 mg IVP Q6H PRN PRN Reason: Nausea/Vomiting Paroxetine HCl (Paxil) 10 mg PO BID [facility] Last Admin: 05/01/18 09:23 Dose: 10 mg
[2018-05-02] MEDS: hydrALAZINE 20 MG/ML VIAL SLOW IVP PRN (07:21)
[2018-05-02] MEDS: Bupropion 150 MG XL TAB PO SCH (08:24)
[2018-05-02] MEDS: Nebivolol HCl 5 MG TAB PO SCH (08:25)
[2018-05-02] MEDS: Losartan/Hydrochlorothiazide 100 mg/25 mg Tablet PO SCH (08:25)
[2018-05-02] MEDS: Sodium Chloride 0.9% 1,000 ML IV SCH ×2 (08:25→19:00)
[2018-05-02] MEDS: Famotidine 20 MG TAB PO SCH ×2 (08:25→20:35)
[2018-05-02] MEDS: PARoxetine 20 MG TAB PO SCH ×2 (08:25→20:35)
--- NOTE | 2018-05-02 14:15 | PRG ---
DATE OF SERVICE: 05/02/2018 SUBJECTIVE: The patient is seen and examined at the bedside. The patient is doing significantly bet ter. She started eating and her mentation improved to the point that she is able to converse with me . OBJECTIVE: VITAL SIGNS: Blood pressure is 155/79, temperature 98.4, pulse is 86, respiratory rate is 20, pulse oximeter is 96% on room air. HEENT: Face is posttraumatic. She has several bruises all over her face and the neck from the previ ous fall. Pupils are responding to light properly. Sclerae is nonicteric. Oral mucosa is moist. NECK: Supple. LUNGS: Clear. HEART: S1, S2 normal, no S3, no S4. ABDOMEN: Soft, nontender, nondistended. Bowel sounds are present. No organomegaly. EXTREMITIES: No clubbing or cyanosis. There is 1+ peripheral edema bilaterally in both lower extrem ities. NEUROLOGIC: She is alert and oriented x2. There is no any motor or sensory deficit present. Crania l nerves are intact. LABORATORY DATA: None today. Microbiology, no growth on blood culture. IMPRESSION: 1. Encephalopathy, multifactorial, improved significantly with supportive care. 2. Dehydration, improved. 3. Hypertension. We will restart her hydrochlorothiazide. 4. Traumatic hematoma of the face, improving. 5. Closed head injury with concussion. 6. Chronic atrial fibrillation, on beta christiano. No anticoagulation due to falls. PLAN: Continue current regimen with supportive care and caser is working on sending her to [email or web address] where her lives. We will start her diuretics since her blood pressure is high and will continue the current regimen.
[2018-05-02] MEDS: Acetaminophen 500 MG TAB PO PRN (15:02)
[2018-05-03] MEDS: Bupropion 150 MG XL TAB PO SCH (08:08)
[2018-05-03] MEDS: PARoxetine 20 MG TAB PO SCH ×2 (08:08→20:29)
[2018-05-03] MEDS: Sodium Chloride 0.9% 1,000 ML IV SCH (08:08)
[2018-05-03] MEDS: Nebivolol HCl 5 MG TAB PO SCH (08:08)
[2018-05-03] MEDS: Famotidine 20 MG TAB PO SCH ×2 (08:08→20:29)
[2018-05-03] MEDS ORDERED: Hydrochlorothiazide 25 MG TAB PO SCH (09:00)
[2018-05-03] MEDS: Losartan/Hydrochlorothiazide 100 mg/25 mg Tablet PO SCH (09:51)
[2018-05-03] MEDS ORDERED: Amlodipine 5 MG TAB PO SCH (13:15)
--- NOTE | 2018-05-03 14:41 | PRG ---
DATE OF SERVICE: 05/03/2018 SUBJECTIVE: The patient is seen and examined at the bedside. She is doing progressively better. He r daughter is at the bedside. She is asking me whether the patient can go back to the rehab for cont inuation of her previously ordered therapy. Apparently, the patient is eating well and she is able t o ambulate and her general condition improves daily. OBJECTIVE: VITAL SIGNS: Blood pressure is ____, temperature 98.2, pulse 93, O2 saturation is 94% on room air. HEENT: Posttraumatic normocephalic. She has multiple ecchymotic areas on her face, and the skin col or is yellow and is evolving ecchymotic changes. Eyes: PERRLA. Sclerae nonicteric. Oral mucosa is moist. NECK: Supple. LUNGS: Clear. HEART: S1, S2 normal. ABDOMEN: Soft, nontender, nondistended. EXTREMITIES: No clubbing, cyanosis, or edema. NEUROLOGIC: She is able to answer my questions quite appropriately. She follows my commands. She m oves her all 4 extremities. LABORATORY DATA: None today. IMPRESSION: 1. Encephalopathy, multifactorial, improved significantly with supportive care. 2. Dehydration, improved. 3. Hypertension. She is still hypertensive despite of using her beta christiano and ARB with ____ so w e will start her on 2.5 mg of amlodipine now, then every day. 4. Traumatic hematoma of the face, improving. 5. Closed head injury with concussion. 6. Chronic atrial fibrillation on beta christiano. No anticoagulation due to falls. PLAN: Continue her physical therapy. Start her on amlodipine 2.5 mg once a day since her blood pres sure is still not well controlled. Change the disposition to rehabilitation unit since she did not f inish her rehabilitation and she had to come to the hospital and ____ arranged for her but she will g o there after she is discharged from the rehab.
[2018-05-03] MEDS: Lorazepam 2 MG/ML VIAL SLOW IVP PRN (20:29)
[2018-05-04] MEDS: Amlodipine 5 MG TAB PO SCH (09:43)
[2018-05-04] MEDS: Bupropion 150 MG XL TAB PO SCH (09:43)
[2018-05-04] MEDS: Nebivolol HCl 5 MG TAB PO SCH (09:43)
[2018-05-04] MEDS: PARoxetine 20 MG TAB PO SCH ×2 (09:44→20:41)
[2018-05-04] MEDS: Losartan/Hydrochlorothiazide 100 mg/25 mg Tablet PO SCH (09:44)
[2018-05-04] MEDS: Famotidine 20 MG TAB PO SCH ×2 (09:44→20:41)
--- NOTE | 2018-05-04 12:42 | PDOC.PN ---
- Subjective Encounter Start Date: 05/04/18 Encounter Start Time: 12:40 Ms. Dorantes was seen today in follow-up of metabolic encephalopathy following a fall. She is awak and alert. She does not have any complaints. She denies headache or feeling dizzy or weak. - Objective Resuscitation Status: Resuscitation Status DNR:Do Not Resuscitate MAR Reviewed: Yes Vital Signs & Weight: Vital Signs (12 hours) Temp Pulse Resp BP BP Pulse Ox 05/04/18 11:35 84 163/76 H 05/04/18 09:43 75 182/84 H 05/04/18 08:00 99 F 75 16 182/84 H 96 Weight Weight 158 lb 11.2 oz I&O: 05/03/18 05/04/18 05/05/18 06:59 06:59 06:59 Intake Total 1525 1465 Balance 1525 1465 Result Diagrams: 04/30/18 04:11 04/30/18 04:11 Phys Exam - Physical Examination HEENT: PERRLA Respiratory: no wheezing, no rales, no rhonchi, clear to auscultation bilateral Cardiovascular: RRR, no significant murmur, no rub Gastrointestinal: soft, non-tender, no distention, positive bowel sounds Musculoskeletal: no edema Dx/Plan (1) Acute metabolic encephalopathy Code(s): G93.41 - METABOLIC ENCEPHALOPATHY Status: Acute Comment: Persistent , unclear etiology but likely multifactorial, will attempt to titrate Ativan dosing and monitor clinically, MRI brain completed with interpretation pending, continue IVF's (2) Closed head injury with concussion Code(s): S06.0X9A - CONCUSSION W LOSS OF CONSCIOUSNESS OF UNSP DURATION, INIT Status: Acute Comment: suspected given recent fall and head injury (3) Atrial fibrillation with controlled ventricular rate Code(s): I48.91 - UNSPECIFIED ATRIAL FIBRILLATION Status: Chronic (4) Hypertension Code(s): I10 - ESSENTIAL (PRIMARY) HYPERTENSION Status: Chronic Qualifiers: Hypertension type: essential hypertension Qualified Code(s): I10 - Essential (primary) hypertension Comment: Labile, increase Bystolic 10mg daily - Plan * Metobolic encephalopathy - improved * Closed head injury- stable * HTN- blood pressure is elevated- Amlodipine has been added - will monitor the trend * Awaiting evaluation for Rehab
[2018-05-04] MEDS: Lorazepam 2 MG/ML VIAL SLOW IVP PRN (20:41)
[2018-05-05 08:48] VITALS: TEMP 98.1
[2018-05-05] MEDS: PARoxetine 20 MG TAB PO SCH (09:02)
[2018-05-05] MEDS: Nebivolol HCl 5 MG TAB PO SCH (09:02)
[2018-05-05] MEDS: Famotidine 20 MG TAB PO SCH (09:02)
[2018-05-05] MEDS: Losartan/Hydrochlorothiazide 100 mg/25 mg Tablet PO SCH (09:02)
[2018-05-05] MEDS: Bupropion 150 MG XL TAB PO SCH (09:03)
[2018-05-05] MEDS: Acetaminophen 500 MG TAB PO PRN (09:03)
[2018-05-05] MEDS: Amlodipine 5 MG TAB PO SCH (09:03)
--- NOTE | 2018-05-05 10:52 | PDOC.PN ---
- Subjective Encounter Start Date: 05/05/18 Encounter Start Time: 10:50 Ms. Dorantes was seen today in follow-up of metabolic encephalopathy following a fall. She is back to her baseline mental status. She does not have any complaints. - Objective MAR Reviewed: Yes Vital Signs & Weight: Vital Signs (12 hours) Temp Pulse Resp BP BP Pulse Ox 05/05/18 09:03 83 166/85 H 05/05/18 08:50 83 166/85 H 05/05/18 08:00 98.1 F 76 18 190/89 H 95 Weight Weight 158 lb 11.2 oz I&O: 05/04/18 05/05/18 05/06/18 06:59 06:59 06:59 Intake Total 1465 500 Balance 1465 500 Result Diagrams: 04/30/18 04:11 04/30/18 04:11 Phys Exam - Physical Examination HEENT: PERRLA Respiratory: no wheezing, no rales, no rhonchi, clear to auscultation bilateral Cardiovascular: RRR, no significant murmur, no rub Gastrointestinal: soft, non-tender, no distention, positive bowel sounds Musculoskeletal: no edema + bruising on the face, and hematoma over the left eye. Neurological: non-focal Dx/Plan (1) Acute metabolic encephalopathy Code(s): G93.41 - METABOLIC ENCEPHALOPATHY Status: Acute Comment: Persistent , unclear etiology but likely multifactorial, will attempt to titrate Ativan dosing and monitor clinically, MRI brain completed with interpretation pending, continue IVF's (2) Closed head injury with concussion Code(s): S06.0X9A - CONCUSSION W LOSS OF CONSCIOUSNESS OF UNSP DURATION, INIT Status: Acute Comment: suspected given recent fall and head injury (3) Atrial fibrillation with controlled ventricular rate Code(s): I48.91 - UNSPECIFIED ATRIAL FIBRILLATION Status: Chronic (4) Hypertension Code(s): I10 - ESSENTIAL (PRIMARY) HYPERTENSION Status: Chronic Qualifiers: Hypertension type: essential hypertension Qualified Code(s): I10 - Essential (primary) hypertension Comment: Labile, increase Bystolic 10mg daily - Plan * Metabolic encephalopathy following a fall- improved * HTN- blood pressure has been labile * Stable for discharge to Rehab.
[2018-05-05 11:16] LABS: #Basophils 0.1 thou/uL (0.0-0.2); #Eosinphils 0.1 thou/uL (0.0-0.7); #Lymphocytes 1.3 thou/uL (1.20-3.40); #Monocytes 1.3 thou/uL (0.11-0.59); #Neutrophils 9.7 thou/uL (1.40-6.50); %Basophils 0.7 % (0.0-1.0); %Eosinophils 1.1 % (0.0-10.0); %Lymphocytes 10.6 % (21.0-51.0); %Monocytes 10.6 % (0.0-10.0); Hemoglobin 11.1 g/dL (12.0-16.0); Mean Corpuscular HGB CONC 32.8 g/dL (32.0-36.0); Mean Corpuscular Volume 91.7 fL (78.0-98.0); Mean Platelet Volume 7.4 fL (7.4-10.4); Platelet Count 296 thou/uL (130-400); RBC Distribution Width 11.1 % (11.5-14.5); White Blood Cell (WBC) Count 12.6 thou/uL (4.8-10.8)
--- NOTE | 2018-05-05 11:16 | DIS ---
DATE OF ADMISSION: 04/29/2018 DATE OF DISCHARGE: 05/05/2018 DISCHARGE DISPOSITION: Inpatient rehab. PRIMARY CARE PHYSICIAN: Dr. Dayton Owens DISCHARGE DIAGNOSES: 1. Metabolic encephalopathy. 2. Mechanical fall with a closed head injury. 3. Hypertension. 4. Diabetes mellitus, type 2. 5. Deconditioning. 6. Chronic atrial fibrillation, off anticoagulation due to multiple falls. DISCHARGE MEDICATIONS: Bystolic 5 mg daily, Norvasc 5 mg p.o. daily, Risperdal 0.5 mg twice a day, p aroxetine 10 mg twice daily, Cozaar 50 mg daily, hydrochlorothiazide 12.5 mg p.o. daily, Wellbutrin-X L 300 mg daily, and Tylenol extra strength q.4 as needed. PROCEDURES DONE DURING ADMISSION: The patient had a CT scan of the brain showing no acute intracrani al abnormalities. Also had an MRI of the brain showing a mild size increase in bilateral subdural hy gromas without hemorrhage. There was mild centralization of the frontal, temporal, and parietal lobe s without evidence of obstruction. CODE STATUS: DNR. ALLERGIES: No known drug allergies. HOSPITAL COURSE: Ms. Dorantes is a pleasant 83-year-old female who was admitted to the hospital aft er she was noted to be confused. This happened after she had suffered a fall. She was thought to godwin ve possibly had a postconcussive syndrome. An MRI was done which ruled out stroke or bleed. She was noted to be mildly dehydrated. She was started on IV fluids. Blood pressures initially held the fi rst day and then restarted. She began to improve slowly over the course of the next several days unt il she returned back to her baseline. There was no evidence of any infections and blood cultures wer e negative after 5 days. As such, she was able to be transferred back to inpatient rehab. She will not be on anticoagulation due to recurrent falls and amlodipine was added to her blood pressure medic ation regimen due to elevated blood pressure and her other medications were continued at her usual do se.
[2018-05-05 11:32] LABS: Anion Gap 11 mmol/L (10-20); BUN (Urea Nitrogen) 10 mg/dL (9.8-20.1); Calc. Creatinine Clearance 66 mL/min (70-130); Calcium 9.1 mg/dL (7.8-10.44); Carbon Dioxide 31 mmol/L (23-31); Chloride 98 mmol/L (98-107); Estimated GFR-MDRD 77; Glucose 101 mg/dL (83-110); Potassium 3.7 mmol/L (3.5-5.1); Sodium 136 mmol/L (136-145)
[2018-05-05 13:55] VITALS: BP 133/67
== END 2018-05-05 14:14 | DRG 93 ==
LOC: ERS 11:16 → ONC 15:24 → OBSVTOIN 16:16
PROVIDERS: ADMIT Family Medicine; ATTEND Family Medicine
DX: G92 Toxic encephalopathy (principal); T50.905A Adverse effect of unspecified drugs, medicaments and biological substances, initial encounter; Z66 Do not resuscitate; Z79.01 Long term (current) use of anticoagulants; I48.2 Chronic atrial fibrillation; Z91.81 History of falling; I10 Essential (primary) hypertension; F41.8 Other specified anxiety disorders; F07.81 Postconcussional syndrome; Z79.899 Other long term (current) drug therapy; S09.90XD Unspecified injury of head, subsequent encounter; W01.0XXD Fall on same level from slipping, tripping and stumbling without subsequent striking against object, subsequent encounter; E86.0 Dehydration; S00.12XD Contusion of left eyelid and periocular area, subsequent encounter
CPT/HCPCS: 36415; 51701; 70450; 70553; 71045; 80048; 80053; 81003; 82140; 82553; 83735; 84443; 84484; 85025; 87040; 93005; A4353; G8978-GP-CM; G8979-GP-CK; G8987-GO-CK; G8988-GO-CJ; J0360; J2060

== ENCOUNTER 2019-03-14 21:49 | Inpatient (IN) | payer MEDICARE, OTHER ==
[2019-03-14 22:23] LABS: #Basophils 0.1 thou/uL (0.0-0.2); #Eosinphils 0.2 thou/uL (0.0-0.7); #Lymphocytes 2.1 thou/uL (1.20-3.40); #Monocytes 1.2 thou/uL (0.11-0.59); #Neutrophils 9.2 thou/uL (1.40-6.50); %Basophils 0.6 % (0.0-1.0); %Eosinophils 1.4 % (0.0-10.0); %Lymphocytes 16.1 % (21.0-51.0); %Neutrophils 72.9 % (42.0-75.0); Mean Corpuscular HGB CONC 33.9 g/dL (32.0-36.0); Mean Corpuscular Hemoglobin 30.7 pg (27.0-31.0); Mean Corpuscular Volume 90.4 fL (78.0-98.0); Mean Platelet Volume 8.9 fL (7.4-10.4); Platelet Count 220 thou/uL (130-400); RBC Distribution Width 11.6 % (11.5-14.5); Red Blood Cell (RBC) Count 4.23 mill/uL (4.20-5.40); White Blood Cell (WBC) Count 12.7 thou/uL (4.8-10.8)
[2019-03-14 22:46] LABS: ALT (SGPT) 14 U/L (8-55); AST (SGOT) 20 U/L (5-34); Alkaline Phosphatase 76 U/L (40-110); Anion Gap 13 mmol/L (10-20); BUN (Urea Nitrogen) 15 mg/dL (9.8-20.1); Bilirubin, Total 0.5 mg/dL (0.2-1.2); Calc. Creatinine Clearance 0 mL/min (70-130); Calcium 9.1 mg/dL (7.8-10.44); Carbon Dioxide 23 mmol/L (23-31); Chloride 101 mmol/L (98-107); Estimated GFR-MDRD 77; Glucose 105 mg/dL (83-110); Potassium 3.8 mmol/L (3.5-5.1); Sodium 133 mmol/L (136-145)
[2019-03-14 23:55] LABS: Bilirubin Negative (Negative); Blood, Urine Trace (Negative); Glucose, Urine (Dipstick) Negative (Negative); Leukocyte Moderate (Negative); Nitrite Negative (Negative); Protein, Urine (Dipstick) Negative (Neg-Trace); Urobilinogen 0.2 mg/dL (Less than 2)
[2019-03-14 23:56] LABS: Clarity Clear (Clear)
[2019-03-15 00:03] LABS: Bacteria/HPF None Seen HPF (None Seen); Other Microscopic Description Less than 2 mL rec'd; RBC/HPF 0-3 HPF (0-3); Squamous Epithelial 0-3 HPF (0-3)
[2019-03-15] MEDS ORDERED: Bacitracin 1 PK ONE (01:03)
[2019-03-15 03:38] LABS: Troponin I Less than 0.010 ng/mL (< 0.028)
[2019-03-15 03:44] VITALS: BMI 25.7
[2019-03-15] MEDS ORDERED: Sodium Chloride 0.9% 1,000 ML IV SCH (04:04)
[2019-03-15] MEDS ORDERED: Acetaminophen 325 MG TAB PO PRN (04:04)
[2019-03-15] MEDS ORDERED: Ondansetron PF 4 MG/2 ML Vial IVP PRN (04:04)
[2019-03-15] MEDS ORDERED: Ondansetron ODT 4 MG TAB SL PRN (04:04)
[2019-03-15] MEDS: hydrALAZINE 20 MG/ML VIAL SLOW IVP PRN ×3 (04:13→23:35)
--- NOTE | 2019-03-15 07:47 | CT ---
PRELIMINARY REPORT/[facility]/EMERGENCY AFTER HOURS PROCEDURE PROCEDURE INFORMATION: Exam: CT Cervical Spine Without Contrast Exam date and time: 03/15/2019 12:51 AM Clinical history: 83 years old, female; Injury or trauma; Initial encounter; Patient HX: F84, unwitnessed fall, abrasion to forehead. AMS. TECHNIQUE: Imaging protocol: Computed tomography images of the cervical spine without contrast. COMPARISON: No relevant prior studies available. FINDINGS: Vertebrae: A curvilinear lucency at the base of the odontoid, best seen on sagittal reconstruction, i s favored to represent a vascular channel, however a nondisplaced fracture cannot be completely excluded. Atlantoaxial degenerative changes are moderate to marked. There is reversal of the cervical lordosis centered at C4-C5. Vertebral bodies are normal height. Multilevel facet arthrosis i s marked with mutilevel ankylosis. Discs/Spinal canal/Neural foramina: Multilevel spinal canal narrowing is mild to moderate, predominantly due to posterior endplate osteophytes and disc bulges. Foraminal stenosis is most pronounced in the mid and lower cervical spine, at least moderate, due to uncovertebral and facet proliferation. Soft tissues: Prevertebral soft tissues are normal thickness. Lungs: Lung apices are normal. IMPRESSION: A curvilinear lucency at the base of the odontoid, best seen on sagittal reconstruction, is favored t o represent a vascular channel, however a nondisplaced fracture cannot be completely excluded. Thank you for allowing us to participate in the care of your patient. Dictated and Authenticated by: Michelle Davies MD 03/15/2019 1:29 AM Central Time ([place] & [place]) FINAL REPORT EMERGENT AFTER HOURS NONCONTRAST CT CERVICAL SPINE: HISTORY: Unwitnessed fall. Abrasion to forehead. Injury after fall. COMPARISON: 04/22/18. IMPRESSION: 1. No fracture or subluxation is seen. 2. Multilevel degenerative changes within the cervical spine greatest at the C4-5 and C5-6 levels and to a lesser degree at the C7-T1 level with degenerative changes similar to prior study. 3. Curvilinear lucency at the base of the odontoid as mentioned on the preliminary report is favored to represent a vascular channel. Similar finding was seen on prior CT cervical spine on 04/22/2018. There are prominent degenerative changes at the articulation of the odontoid with the anterior arch o f C1. Findings are in agreement with the preliminary report by Denise. The lucency at the base of the odontoi d is stable compared to prior study in 2018 and is most suggestive of a vascular channel. Transcribed Date/Time: 03/15/2019 7:57 AM
--- NOTE | 2019-03-15 07:59 | CT ---
PRELIMINARY REPORT/[facility]/EMERGENCY AFTER HOURS PROCEDURE: PROCEDURE INFORMATION: Exam: CT Head Without Contrast Exam date and time: 03/15/2019 12:53 AM Clinical history: 83 years old, female; Injury or trauma; Initial encounter; Patient HX: F84, unwitne ssed fall, abrasion to forehead. AMS. TECHNIQUE: Imaging protocol: Computed tomography of the head without contrast. COMPARISON: No relevant prior studies available. FINDINGS: Brain: No hemorrhage. Patchy whitte matter hypodensities are nonspecific but may be seen in small ves janessa chronic ischemic changes. No mass effect. Ventricles: No ventriculomegaly. Bones/joints: Unremarkable. No acute fracture. Sinuses: Visualized sinuses are unremarkable. No fluid levels. Mastoid air cells: Visualized mastoid air cells are well aerated. Soft tissues: Mild forehead swelling. IMPRESSION: No acute intracranial abnormality. Thank you for allowing us to participate in the care of your patient. Dictated and Authenticated by: Michelle Davies MD 03/15/2019 1:09 AM Central Time ([place] & [place]) FINAL REPORT CT BRAIN WITHOUT CONTRAST: I agree with the preliminary report given by Dr. Michelle Garcia of [facility]. POS: OFF
[2019-03-15 10:34] LABS: Troponin I 0.014 ng/mL (< 0.028)
[2019-03-15] MEDS ORDERED: Amlodipine 5 MG TAB PO SCH (11:00)
[2019-03-15] MEDS ORDERED: hydrALAZINE 25 MG TAB PO PRN (11:01)
[2019-03-15] MEDS: cefTRIAXone\\ROCEPHIN 1 GM in Sodium Chloride 0.9% 100 ML IVPB SCH (11:17)
[2019-03-15] MEDS: Sodium Chloride 0.9% 1,000 ML IV SCH ×2 (11:19→17:17)
[2019-03-15 13:39] LABS: Anion Gap 16 mmol/L (10-20); BUN (Urea Nitrogen) 10 mg/dL (9.8-20.1); Calc. Creatinine Clearance 74 mL/min (70-130); Calcium 9.2 mg/dL (7.8-10.44); Carbon Dioxide 21 mmol/L (23-31); Chloride 104 mmol/L (98-107); Estimated GFR-MDRD 90; Glucose 93 mg/dL (83-110); Potassium 3.8 mmol/L (3.5-5.1); Sodium 137 mmol/L (136-145)
[2019-03-15] MEDS ORDERED: Calcium Carbonate 500 MG ChewTAB PO PRN (13:45)
--- NOTE | 2019-03-15 14:00 | RAD ---
ABDOMINAL SURVEY WITH UPRIGHT CHEST AND 2 VIEW ABDOMEN: HISTORY: Abdominal pain with nausea. FINDINGS: Lungs appear clear. Heart size is upper normal but stable from prior exam of 08/12/2015. Two views of the abdomen show unremarkable bowel gas pattern. Scattered and gas throughout the colon . Mild gaseous distention of the stomach. Small bowel gas pattern is unremarkable. No free air or soft tissue mass identified. IMPRESSION: Unremarkable bowel gas pattern. POS: [facility]
--- NOTE | 2019-03-15 14:06 | HP ---
PRIMARY CARE PHYSICIAN: Dr. Owens. PRIMARY [employer]UST[employer] MAGISTRATE: Dr. Townsend. CHIEF COMPLAINT: Altered mentation. HISTORY OF PRESENT ILLNESS: The patient is an 83-year-old female with chronic atrial fibrillation, hypertension, and recurrent falls, presented to the emergency room with above complaints. History obtained from the son at the bedside. The patient currently lives in an assisted living facility. She had 2 episodes of fall over the weekend. Since then, the patient has been more altered. It is unclear whether she lost consciousness. She sustained forehead and the left elbow abrasions. The patient is unable to provide further information. She denies any chest pain, shortness of breath, palpitations, lightheadedness, dizziness at this time. In the emergency room, her initial vital signs showed temperature 98.5, respirations 20, pulse of 71, with a blood pressure of 183/81, with O2 saturation 96% on room air. EKG showed atrial fibrillation with rapid ventricular response. In the emergency room, she was found to have bradycardia with heart rate to 30s. Per ER report, the patient lost consciousness during the second fall. No double vision, blurring of vision, facial asymmetry, weakness or numbness of extremities reported. The patient developed some nausea overnight, however, denies any vomiting. PAST MEDICAL HISTORY: 1. Chronic atrial fibrillation. 2. History of recurrent falls. 3. Hypertension. 4. Anxiety/depression. 5. Deconditioning. PAST SURGICAL HISTORY: 1. Status post laparoscopic repair for small-bowel obstruction. 2. Back surgery. ALLERGIES: NO KNOWN DRUG ALLERGIES. CURRENT HOME MEDICATIONS: 1. Carvedilol 12.5 b.i.d. 2. Vitamin B12 of 5000 mcg daily. 3. Vitamin D2 of 25 mcg daily. 4. Paxil 10 mg b.i.d. FAMILY HISTORY: Positive for hypertension. SOCIAL HISTORY: As discussed above. She ambulates with the help of her rolling walker. She has history of multiple falls. Her son and [id number]-tal make decision for her. REVIEW OF SYSTEMS: Cannot be reliably obtained from the patient due to current mentation. CODE STATUS: Do not resuscitate, verified with the next of kin, Kaitlyn Tejeda over the phone. PHYSICAL EXAMINATION: VITAL SIGNS: At this time showed temperature 97.8, pulse rate of 98, respirations 20, blood pressure 174/83, and O2 saturation 97% on room air. GENERAL: An 83-year-old female, in no apparent distress. Pleasantly confused. HEENT: Head, atraumatic and normocephalic. Sclerae anicteric. Moist mucous membranes. No oral lesion. Pupils were reacting to light bilaterally. NECK: Supple. No JVD. No carotid bruit. LUNGS: Essentially clear to auscultation bilaterally. No wheezing, rales, or rhonchi. HEART: S1 and S2 present. Irregularly irregular. No rubs or gallops. 2/6 systolic murmur over the mitral area. ABDOMEN: Soft and nontender. Bowel sounds present. EXTREMITIES: No edema, calf tenderness. NEUROLOGIC: Exam was limited due to altered mentation. However, on limited examination, power was 5/5 in all extremities. Sensation to touch was normal bilaterally. PSYCHIATRIC: As discussed above. SKIN: Warm and dry. LYMPH NODES: No palpable lymph nodes in the neck. PERIPHERAL VASCULAR: Radial pulses palpable bilaterally. MUSCULOSKELETAL: No joint swelling or tenderness. LABORATORY FINDINGS: WBC 12.7, hemoglobin 13, hematocrit 38.3, and platelets of 220. Chemistry showed sodium 133, potassium 3.8, chloride 101, bicarb 23, BUN of 15, and creatinine 0.72. Troponin was negative. Magnesium was 2.1. CT scan of the brain by my review was negative for acute findings. Cervical spine CT was negative for acute fractures or dislocation. Urinalysis showed 4 to 6 wbc's with moderate leukocyte esterase. No bacteria were seen. EKG by my review showed atrial fibrillation with nonspecific ST-T wave changes. Chest x-ray by my review was negative for infiltrate or edema. IMPRESSION: 1. Toxic-metabolic encephalopathy, suspected to be secondary to urinary tract infection, rule out cardiac etiology. 2. Recurrent falls with possible syncope, questionable symptomatic bradycardia. 3. Leukocytosis, suspected to be secondary to urinary tract infection, questionable systemic inflammatory response syndrome due to urinary tract infection. 4. Hyponatremia. 5. Anxiety. 6. History of chronic atrial fibrillation. Anticoagulation was discontinued last year after an episode of fall. 7. Depression, mild, stable. 8. Suspected dementia. 9. Do not resuscitate. PLAN: The patient will be monitored on the telemetry unit. We will start empiric antibiotics. We will add on urine culture. Gentle IV hydration. Recheck labs in a.m. We will hold carvedilol due to bradycardia. We will start amlodipine. Resume Paxil. Consult Physical Therapy and Occupational Therapy. Add p.r.n. antihypertensives. We will also get a KUB due to nausea. Check folic acid and vitamin B12 level. Plan of care was discussed with the patient and the son at the bedside. They stated understanding. Job ID: [id number]
[2019-03-15] MEDS: Acetaminophen 325 MG TAB PO PRN (15:29)
--- NOTE | 2019-03-15 18:23 | PRG ---
DATE OF SERVICE: 03/15/2019 SUBJECTIVE: Ms. Dorantes is confused and disoriented. OBJECTIVE: VITAL SIGNS: Blood pressure is variable, most recent 164/92, pulse in the 90s. LUNGS: Clear. CARDIAC: Irregularly irregular. ABDOMEN: Soft, nontender. ASSESSMENT: 1. Chronic atrial fibrillation. 2. The patient previously declined staying on anticoagulant. 3. Hypertension. PLAN: Reasonable from my standpoint to start with anticoagulants if safe from a neurologic standpoint. Hopefully, we can persuade her to take the medicines. No other recommendations at this point. Job ID: [id number]
[2019-03-15] MEDS ORDERED: Lorazepam 2 MG/ML VIAL SLOW IVP PRN (20:16)
[2019-03-15] MEDS: PARoxetine 20 MG TAB PO SCH (20:19)
[2019-03-15] MEDS: Senokot S 8.6-50 MG TAB PO SCH (20:20)
[2019-03-15] MEDS ORDERED: PARoxetine 20 MG TAB PO SCH (21:00)
[2019-03-15] MEDS ORDERED: diphenhydrAMINE 50 MG/ML VIAL IVP SCH (22:30)
[2019-03-16] MEDS ORDERED: Enalaprilat Dihydrate 1.25 MG/ML VIAL SLOW IVP SCH (01:45)
[2019-03-16] MEDS ORDERED: Lorazepam 2 MG/ML VIAL SLOW IVP PRN ×2 (01:46→09:45)
[2019-03-16] MEDS: hydrALAZINE 20 MG/ML VIAL SLOW IVP PRN (05:31)
[2019-03-16 06:56] LABS: #Lymphocytes 0.5 thou/uL (1.20-3.40); #Monocytes 0.5 thou/uL (0.11-0.59); #Neutrophils 10.3 thou/uL (1.40-6.50); %Basophils 0.4 % (0.0-1.0); %Eosinophils 0.2 % (0.0-10.0); %Lymphocytes 4.3 % (21.0-51.0); %Neutrophils 91.1 % (42.0-75.0); Hemoglobin 12.2 g/dL (12.0-16.0); Mean Corpuscular HGB CONC 32.6 g/dL (32.0-36.0); Mean Corpuscular Hemoglobin 29.7 pg (27.0-31.0); Mean Corpuscular Volume 91.1 fL (78.0-98.0); Platelet Count 204 thou/uL (130-400); RBC Distribution Width 11.8 % (11.5-14.5); Red Blood Cell (RBC) Count 4.09 mill/uL (4.20-5.40); White Blood Cell (WBC) Count 11.3 thou/uL (4.8-10.8)
[2019-03-16 07:08] LABS: Anion Gap 14 mmol/L (10-20); BUN (Urea Nitrogen) 11 mg/dL (9.8-20.1); Calc. Creatinine Clearance 75 mL/min (70-130); Calcium 8.8 mg/dL (7.8-10.44); Carbon Dioxide 21 mmol/L (23-31); Chloride 106 mmol/L (98-107); Estimated GFR-MDRD Greater than 90; Glucose 124 mg/dL (83-110); Potassium 3.5 mmol/L (3.5-5.1); Sodium 137 mmol/L (136-145)
[2019-03-16] MEDS: Senokot S 8.6-50 MG TAB PO SCH ×2 (08:42→21:51)
[2019-03-16] MEDS: Amlodipine 5 MG TAB PO SCH (08:42)
[2019-03-16] MEDS: PARoxetine 20 MG TAB PO SCH ×2 (08:42→21:51)
[2019-03-16] MEDS ORDERED: ERGOCALCIFEROL 25 MCG PO SCH (09:00)
[2019-03-16] MEDS ORDERED: VITAMIN D2 PO SCH (09:00)
[2019-03-16] MEDS ORDERED: Cyanocobalamin (Vitamin B-12) 1,000 MCG TAB PO SCH (09:00)
[2019-03-16] MEDS: cefTRIAXone\\ROCEPHIN 1 GM in Sodium Chloride 0.9% 100 ML IVPB SCH (09:37)
[2019-03-16] MEDS: Sodium Chloride 0.9% 1,000 ML IV SCH (09:40)
[2019-03-16] MEDS ORDERED: Labetalol HCl 100 MG/20 ML VIAL SLOW IVP PRN (09:45)
[2019-03-16] MEDS ORDERED: cloNIDine 0.1mg/24 Hour PATCH TD SCH (09:45)
--- NOTE | 2019-03-16 15:32 | PRG ---
DATE OF SERVICE: 03/16/2019 SUBJECTIVE: Ms. Dorantes had severe confusion and disorientation last night. She is calmer now. OBJECTIVE: VITAL SIGNS: Her blood pressure is high at 182/97, pulse is 108 with AFib. LUNGS: Clear. CARDIAC: Irregularly irregular. ABDOMEN: Soft, nontender. IMAGING STUDIES: The patient did have some nonsustained episode of ventricular tachycardia today. Echocardiogram showed normal left ventricular function. ASSESSMENT: 1. Confusion, disorientation, apparently some baseline dementia. 2. Recurrent mechanical falls. Cannot be anticoagulated according to the notes. 3. Chronic atrial fibrillation. 4. Nonsustained ventricular tachycardia with normal left ventricular function. 5. Hypertension. PLAN: 1. Agree with resuming carvedilol. 2. Continue BROOKE inhibitor. 3. We will follow with you. Prognosis long-term appears poor. Job ID: [id number]
[2019-03-16] MEDS: Carvedilol 3.125 MG TAB PO SCH (16:16)
[2019-03-16] MEDS ORDERED: Carvedilol 3.125 MG TAB PO SCH (17:00)
[2019-03-16] MEDS: Acetaminophen 325 MG TAB PO PRN (18:19)
[2019-03-16] MEDS ORDERED: risperiDONE 0.25 MG TAB PO SCH (21:00)
[2019-03-16] MEDS: cloNIDine 0.1 MG TAB PO PRN (21:51)
--- NOTE | 2019-03-17 00:14 | PDOC.HOSPP ---
- Subjective Encounter Date: 03/16/19 Encounter Time: 09:30 Subjective: Patient seen and examined for AMS. Somnolent after Ativan and Benadryl last night. Overnight events noted - Objective Vital Signs & Weight: Vital Signs (12 hours) Temp Pulse Resp BP Pulse Ox 03/16/19 23:07 99 F 85 20 141/75 H 94 L 03/16/19 19:35 99.7 F H 95 17 181/101 H 95 03/16/19 15:35 99 F 98 20 174/85 H 92 L Weight Weight 156 lb I&O: 03/15/19 03/16/19 03/17/19 06:59 06:59 06:59 Intake Total 366 2973 1391 Output Total 550 1750 500 Balance -184 1223 891 Result Diagrams: 03/16/19 06:39 03/16/19 06:39 Additional Labs: Microbiology 03/14/19 23:41 Urine clean catch Urine Culture - Preliminary Klebsiella pneumoniae ssp pneu Radiology Reviewed by me: Yes (CXR - neg) EKG Reviewed by me: Yes (Tele SR) Hospitalist ROS - Review of Systems ROS unobtainable: due to mental status - Medication Medications: Active Medications Generic Name Dose Route Start Last Admin Trade Name Freq PRN Reason Stop Dose Admin Acetaminophen 650 mg 03/15/19 13:45 03/16/19 18:19 Tylenol PO 650 mg Q4H PRN Administration Headache/Fever/Mild Pain (1-3) Amlodipine Besylate 5 mg 03/16/19 09:00 03/16/19 08:42 Norvasc PO 5 mg DAILY PRESTON Administration Carvedilol 6.25 mg 03/16/19 17:00 03/16/19 16:16 Coreg PO 6.25 mg BID-WM PRESTON Administration Clonidine 0.1 mg 03/15/19 22:19 03/16/19 21:51 Catapres PO 0.1 mg Q4H PRN Administration SBP Greater Than 180 Hydralazine HCl 10 mg 03/15/19 03:47 03/16/19 05:31 Apresoline SLOW IVP 10 mg Q4H PRN Administration SBP Greater Than 180 Hydralazine HCl 25 mg 03/15/19 11:01 03/15/19 20:20 Apresoline PO 25 mg TID PRN Administration SBP Greater Than 170 Ceftriaxone Sodium 1 gm/ 100 mls @ 200 mls/hr 03/15/19 11:00 03/16/19 09:37 Sodium Chloride IVPB 100 mls 1100 PRESTON Administration Sodium Chloride 1,000 mls @ 75 mls/hr 03/15/19 11:00 03/16/19 09:40 Normal Saline 0.9% IV 1,000 mls .[id number] PRESTON Administration Lorazepam 0.5 mg 03/16/19 01:46 03/16/19 02:13 Ativan SLOW IVP 03/17/19 01:47 0.5 mg ONE PRN Administration Anxiety/Agitation Paroxetine HCl 10 mg 03/15/19 21:00 03/16/19 21:51 Paxil PO 10 mg BID PRESTON Administration Risperidone 0.25 mg 03/16/19 21:00 03/16/19 21:51 Risperidone PO 0.25 mg HS PRESTON Administration Senna/Docusate Sodium 1 tab 03/15/19 21:00 03/16/19 21:51 Senokot S PO 1 tab BID PRESTON Administration Sodium Chloride 10 ml 03/15/19 21:00 03/16/19 21:52 Flush - Normal Saline IVF Not Given Q12HR PRESTON - Exam General Appearance: NAD Heart: RRR, no gallops Respiratory: CTAB, no rales Gastrointestinal: soft, non-tender, normal bowel sounds Extremities: no edema Hosp A/P - Plan DVT proph w/SCDs IMPRESSION: 1. Toxic-metabolic encephalopathy/Sepsis prob due to Klebsiella UTI 2. Recurrent falls with possible syncope, ?symptomatic bradycardia. 3. History of chronic atrial fibrillation. Anticoagulation was discontinued last year after an episode of fall. 4. Hyponatremia. 5. HTN - uncontrolled 6. NSVT 7. Depression, mild, stable. 8. Anxiety. 9. Dementia. 10. DNR PLAN: Cont IVF Cont IV Ceftriaxone Restart low dose Coreg Clondine patch Cardiology following PT/OT SNF Eval
[2019-03-17] MEDS: Sodium Chloride 0.9% 1,000 ML IV SCH ×2 (04:16→11:19)
--- NOTE | 2019-03-17 08:40 | RAD ---
PORTABLE CHEST 1 VIEW: Date: 03/17/19 Time: 0802 hours HISTORY: Fever, respiration. FINDINGS/IMPRESSION: Comparison made with exam of 04/29/18. The heart is enlarged. The aorta is tortuous. The lungs are expanded without lobar consolidation, pne umothoraces, shania pulmonary edema, or large effusions. There are degenerative changes in the shoulde r joints. POS: [facility]
[2019-03-17] MEDS: Amlodipine 5 MG TAB PO SCH (09:35)
[2019-03-17] MEDS: Carvedilol 3.125 MG TAB PO SCH ×2 (09:35→16:23)
[2019-03-17] MEDS: PARoxetine 20 MG TAB PO SCH ×2 (09:35→21:18)
[2019-03-17] MEDS: Senokot S 8.6-50 MG TAB PO SCH ×2 (09:36→21:19)
--- NOTE | 2019-03-17 09:49 | ULT ---
BILATERAL RENAL ULTRASOUND: HISTORY: UTI and fever. FINDINGS: The right kidney measures 11.6 cm in length and the left kidney measures 11.5 cm in length. No hydron ephrosis is seen on either side. There are cysts in the left kidney, measuring 1.3 cm in the superior pole and 2.1 cm in the inferior pole. The urinary bladder is well distended with a volume of 252 mL and is grossly unremarkable. IMPRESSION: Left renal cysts. POS: [facility]
[2019-03-17] MEDS: cefTRIAXone\\ROCEPHIN 1 GM in Sodium Chloride 0.9% 100 ML IVPB SCH (11:18)
[2019-03-17] MEDS: cloNIDine 0.1 MG TAB PO PRN (12:21)
[2019-03-17] MEDS ORDERED: Sodium Chloride 0.9% 1,000 ML IV SCH (13:23)
[2019-03-17] MEDS ORDERED: risperiDONE 0.25 MG TAB PO PRN (14:13)
[2019-03-17] MEDS: Acetaminophen 325 MG TAB PO PRN (16:23)
--- NOTE | 2019-03-17 20:05 | PDOC.HOSPP ---
- Subjective Encounter Date: 03/17/19 Encounter Time: 09:30 Subjective: Patient seen and examined for Encephalopathy. Mentation improving. No new focal deficits. No overnight events - Objective Vital Signs & Weight: Vital Signs (12 hours) Temp Pulse Pulse Pulse Resp BP BP 03/17/19 15:55 100.1 F H 79 22 H 03/17/19 13:05 82 18 03/17/19 12:21 185/100 H 03/17/19 12:09 98.7 F 70 22 H 03/17/19 10:40 76 96 174/95 H 03/17/19 09:35 91 143/95 H 03/17/19 08:15 BP BP Pulse Ox Pulse Ox Pulse Ox 03/17/19 15:55 130/72 96 03/17/19 13:05 169/96 H 95 03/17/19 12:21 03/17/19 12:09 185/100 H 94 L 03/17/19 10:40 185/116 H 94 L 94 L 03/17/19 09:35 03/17/19 08:15 95 Weight Weight 156 lb I&O: 03/16/19 03/17/19 03/18/19 06:59 06:59 06:59 Intake Total 2973 1391 780 Output Total 1750 500 Balance 1223 891 780 Result Diagrams: 03/16/19 06:39 03/16/19 06:39 EKG Reviewed by me: Yes (Tele Afib) Hospitalist ROS - Review of Systems Respiratory: denies: cough, dry, shortness of breath, hemoptysis, SOB with excertion, pleuritic pain, sputum, wheezing, other Cardiovascular: denies: chest pain, palpitations, orthopnea, paroxysmal noc. dyspnea, edema, light headedness, other - Medication Medications: Active Medications Generic Name Dose Route Start Last Admin Trade Name Freq PRN Reason Stop Dose Admin Acetaminophen 650 mg 03/15/19 13:45 03/17/19 16:23 Tylenol PO 650 mg Q4H PRN Administration Headache/Fever/Mild Pain (1-3) Amlodipine Besylate 5 mg 03/16/19 09:00 03/17/19 09:35 Norvasc PO 5 mg DAILY PRESTON Administration Carvedilol 6.25 mg 03/16/19 17:00 03/17/19 16:23 Coreg PO 6.25 mg BID-WM PRESTON Administration Clonidine 0.1 mg 03/15/19 22:19 03/17/19 12:21 Catapres PO 0.1 mg Q4H PRN Administration SBP Greater Than 180 Hydralazine HCl 10 mg 03/15/19 03:47 03/16/19 05:31 Apresoline SLOW IVP 10 mg Q4H PRN Administration SBP Greater Than 180 Hydralazine HCl 25 mg 03/15/19 11:01 03/15/19 20:20 Apresoline PO 25 mg TID PRN Administration SBP Greater Than 170 Ceftriaxone Sodium 1 gm/ 100 mls @ 200 mls/hr 03/15/19 11:00 03/17/19 11:18 Sodium Chloride IVPB 100 mls 1100 PRESTON Administration Sodium Chloride 1,000 mls @ 30 mls/hr 03/17/19 13:23 03/17/19 13:30 Normal Saline 0.9% IV 03/17/19 23:59 Not Given .Q24H PRESTON Paroxetine HCl 10 mg 03/15/19 21:00 03/17/19 09:35 Paxil PO 10 mg BID PRESTON Administration Senna/Docusate Sodium 1 tab 03/15/19 21:00 03/17/19 09:36 Senokot S PO 1 tab BID PRESTON Administration Sodium Chloride 10 ml 03/15/19 21:00 03/17/19 09:36 Flush - Normal Saline IVF Not Given Q12HR PRESTON - Exam General Appearance: NAD Heart: no gallops, no rubs, irregular Respiratory: CTAB, no rales Gastrointestinal: soft, non-tender, normal bowel sounds Extremities: no edema Hosp A/P - Plan plan discussed w/ family, DVT proph w/SCDs IMPRESSION: 1. Toxic-metabolic encephalopathy/Sepsis prob due to Klebsiella UTI 2. Recurrent falls with possible syncope, ?symptomatic bradycardia. 3. History of chronic atrial fibrillation. Prob not a candidate for anticoag. 4. Hyponatremia. 5. HTN - uncontrolled 6. NSVT 7. Depression, mild, stable. 8. Anxiety. 9. Dementia. 10. DNR PLAN: Cont IV Ceftriaxone Renal ultrasound due to persistent low grade fever Cont Coreg/Clondine patch Cont Amlodipine Change Risperdal to PRN Reduce IVF to KVO [facility]
[2019-03-17] MEDS ORDERED: Saccharomyces boulardii 250 MG CAP PO SCH (21:00)
[2019-03-18 05:35] LABS: #Basophils 0.1 thou/uL (0.0-0.2); #Eosinphils 0.3 thou/uL (0.0-0.7); #Lymphocytes 1.2 thou/uL (1.20-3.40); #Monocytes 0.9 thou/uL (0.11-0.59); #Neutrophils 5.1 thou/uL (1.40-6.50); %Basophils 0.9 % (0.0-1.0); %Eosinophils 4.4 % (0.0-10.0); %Lymphocytes 15.8 % (21.0-51.0); Hemoglobin 11.6 g/dL (12.0-16.0); Mean Corpuscular HGB CONC 33.9 g/dL (32.0-36.0); Mean Corpuscular Hemoglobin 31.4 pg (27.0-31.0); Mean Corpuscular Volume 92.5 fL (78.0-98.0); Mean Platelet Volume 9.7 fL (7.4-10.4); Platelet Count 164 thou/uL (130-400); RBC Distribution Width 11.7 % (11.5-14.5); Red Blood Cell (RBC) Count 3.68 mill/uL (4.20-5.40); White Blood Cell (WBC) Count 7.5 thou/uL (4.8-10.8)
[2019-03-18 05:57] LABS: ALT (SGPT) 39 U/L (8-55); AST (SGOT) 58 U/L (5-34); Albumin 3.5 g/dL (3.4-4.8); Alkaline Phosphatase 65 U/L (40-110); Anion Gap 9 mmol/L (10-20); BUN (Urea Nitrogen) 13 mg/dL (9.8-20.1); Bilirubin, Total 0.6 mg/dL (0.2-1.2); Calc. Creatinine Clearance 77 mL/min (70-130); Calcium 8.7 mg/dL (7.8-10.44); Carbon Dioxide 27 mmol/L (23-31); Chloride 104 mmol/L (98-107); Estimated GFR-MDRD Greater than 90; Globulin 2.7 g/dL (2.4-3.5); Glucose 91 mg/dL (83-110); Potassium 3.1 mmol/L (3.5-5.1); Protein, Total 6.2 g/dL (6.0-8.3); Sodium 137 mmol/L (136-145)
[2019-03-18] MEDS ORDERED: Potassium Chloride 10 MEQ TAB PO SCH (08:00)
[2019-03-18 08:15] VITALS: TEMP 99
[2019-03-18] MEDS ORDERED: Cefdinir 300 MG CAP PO SCH (09:00)
[2019-03-18] MEDS: Carvedilol 3.125 MG TAB PO SCH (09:45)
[2019-03-18] MEDS: Senokot S 8.6-50 MG TAB PO SCH (09:46)
[2019-03-18] MEDS: PARoxetine 20 MG TAB PO SCH (09:46)
[2019-03-18] MEDS: Amlodipine 5 MG TAB PO SCH (09:46)
[2019-03-18 10:41] VITALS: BP 145/82
--- NOTE | 2019-03-19 14:53 | DIS ---
DATE OF ADMISSION: 03/15/2019 DATE OF DISCHARGE: 03/18/2019 DISCHARGE DISPOSITION: Home with [facility]. FOLLOWUP: 1. Follow up with Dr. Owens in 1 week. 2. Basic metabolic profile after 1 week is recommended, primary care physician advised to follow. DISCHARGE MEDICATIONS: 1. Vitamin B12 5000 mcg daily. 2. Vitamin D2 25 mcg daily. 3. Paxil 10 mg b.i.d. 4. Amlodipine 5 mg daily. 5. Carvedilol 6.25 b.i.d. 6. Omnicef 300 mg b.i.d. for the next 4 days. 7. Multivitamin 1 tablet daily. 8. Potassium chloride 10 mEq three times daily for next 3 days. 9. Florastor 250 mg daily. DIAGNOSTIC TESTS: 1. WBC on admission 12.7, at discharge 7.5. 2. Vitamin B12 greater than 2000. 3. Folic acid 11.5. 4. Potassium on the day of discharge is 3.1. 5. Troponin was negative. 6. Sodium on admission 133, at discharge 137. 7. Urinalysis showed 4 to 6 WBC without any bacteria. 8. Urine culture showed Klebsiella pneumonia [id number] colonies sensitive to cephalosporins. 9. Echocardiogram showed left ventricular ejection fraction 55% to 60% with left atrial dilatation, moderate to severe tricuspid regurgitation, moderate to markedly elevated pulmonary artery pressure of 55 mm. Please note that the patient was combative during the study. 10. Renal ultrasound showed left renal cyst. It was negative for obstructive uropathy. 11. KUB was unremarkable. BRIEF HOSPITAL COURSE: The patient is an 83-year-old female with chronic atrial fibrillation, hypertension, and recurrent falls, presented to the hospital with altered mentation. Please refer to the history and physical for further details. The patient was admitted to the hospital with a diagnosis of toxic metabolic encephalopathy suspected to be secondary to UTI. The patient was monitored on the telemetry unit. She was also evaluated by Cardiology, Dr. Townsend. Anticoagulation was not started due to history of recurrent falls. Her mentation gradually improved with IV antibiotics. She appears stable for discharge. Plan of care was discussed with the family. They stated understanding. The patient had brief episodes of agitation during this hospital stay. FINAL DIAGNOSES: 1. Toxic metabolic encephalopathy seconds, suspected to be secondary to Klebsiella urinary tract infection. 2. Chronic atrial fibrillation, not a candidate for anticoagulation due to recurrent falls. 3. Sepsis secondary to urinary tract infection. 4. Hyponatremia. 5. Hypokalemia. 6. Anxiety. 7. Depression, mild, stable. 8. Dementia. 9. Do not resuscitate. 10. Chronic kidney disease stage 2. PLAN: Plan was discussed with the patient and the family. They stated understanding. Job ID: [id number]
--- NOTE | 2019-03-21 02:14 | EKG ---
Test Reason : IRREGULAR HR Blood Pressure : / mmHG Vent. Rate : 060 BPM Atrial Rate : 084 BPM P-R Int : 000 ms QRS Dur : 082 ms QT Int : 428 ms P-R-T Axes : 000 048 -34 degrees QTc Int : 428 ms Atrial fibrillation Nonspecific ST and T wave abnormality Abnormal ECG Confirmed by EMERITA Motley, MARBELLA ([id number]), commercial production editor MARIA ISABEL RICHARD ([id number]) on 03/21/2019 2:14:08 AM Referred By: KATHRYN Confirmed By:MARBELLA FELDER M.D.
[2019-03-23] MEDS ORDERED: cloNIDine 0.1mg/24 Hour PATCH TD SCH (09:00)
== END 2019-03-18 10:53 | disposition home health service (06) | DRG 871 ==
LOC: ERS 21:49 → 2SW 03-15 03:18 → OBSVTOIN 03-15 03:39 → 2SW 03-15 03:39
PROVIDERS: ADMIT Hospitalist; ATTEND Hospitalist
DX: A41.59 Other Gram-negative sepsis (principal); G92 Toxic encephalopathy; I48.20 Chronic atrial fibrillation, unspecified; E87.1 Hypo-osmolality and hyponatremia; I47.2 Ventricular tachycardia; N39.0 Urinary tract infection, site not specified; Z66 Do not resuscitate; F41.9 Anxiety disorder, unspecified; F32.9 Major depressive disorder, single episode, unspecified; R00.1 Bradycardia, unspecified; F03.90 Unspecified dementia, unspecified severity, without behavioral disturbance, psychotic disturbance, mood disturbance, and anxiety; R29.6 Repeated falls; N18.2 Chronic kidney disease, stage 2 (mild); I12.9 Hypertensive chronic kidney disease with stage 1 through stage 4 chronic kidney disease, or unspecified chronic kidney disease; J44.9 Chronic obstructive pulmonary disease, unspecified; E87.6 Hypokalemia; Z79.899 Other long term (current) drug therapy
CPT/HCPCS: 36415; 70450; 71045; 72125; 74022; 76770; 80048; 80053; 81003; 81015; 82607; 82746; 83735; 84484; 85025; 87077; 87086; 87186; 93005; 93306; J0360; J0696; J1200; J2060; J2405; J3490

== ENCOUNTER 2019-03-19 10:03 | Emergency (ER) | payer MEDICARE, OTHER ==
[2019-03-19 10:40] LABS: #Basophils 0.1 thou/uL (0.0-0.2); #Eosinphils 0.3 thou/uL (0.0-0.7); #Lymphocytes 0.9 thou/uL (1.20-3.40); #Monocytes 0.7 thou/uL (0.11-0.59); #Neutrophils 4.8 thou/uL (1.40-6.50); %Eosinophils 4.1 % (0.0-10.0); %Lymphocytes 13.9 % (21.0-51.0); %Monocytes 9.8 % (0.0-10.0); %Neutrophils 71.2 % (42.0-75.0); Hemoglobin 12.6 g/dL (12.0-16.0); Mean Corpuscular HGB CONC 33.8 g/dL (32.0-36.0); Mean Corpuscular Hemoglobin 31.2 pg (27.0-31.0); Mean Corpuscular Volume 92.3 fL (78.0-98.0); Mean Platelet Volume 9.1 fL (7.4-10.4); Platelet Count 196 thou/uL (130-400); RBC Distribution Width 11.7 % (11.5-14.5); Red Blood Cell (RBC) Count 4.04 mill/uL (4.20-5.40); White Blood Cell (WBC) Count 6.8 thou/uL (4.8-10.8)
[2019-03-19 11:06] LABS: ALT (SGPT) 46 U/L (8-55); AST (SGOT) 53 U/L (5-34); Albumin 3.8 g/dL (3.4-4.8); Alkaline Phosphatase 87 U/L (40-110); Anion Gap 11 mmol/L (10-20); BUN (Urea Nitrogen) 10 mg/dL (9.8-20.1); Bilirubin, Total 0.6 mg/dL (0.2-1.2); Calc. Creatinine Clearance 0 mL/min (70-130); Carbon Dioxide 28 mmol/L (23-31); Chloride 103 mmol/L (98-107); Estimated GFR-MDRD Greater than 90; Globulin 3.1 g/dL (2.4-3.5); Glucose 138 mg/dL (83-110); Potassium 3.3 mmol/L (3.5-5.1); Protein, Total 6.9 g/dL (6.0-8.3); Sodium 139 mmol/L (136-145)
--- NOTE | 2019-03-19 11:09 | RAD ---
XR Chest 1 View Portable History: Dyspnea Comparison: Radiograph March 17, 2019 Findings: Heart size is enlarged. No pneumothorax. No effusion. Advanced degenerative changes both shoulders. Impression: Mild cardiomegaly.
[2019-03-19] MEDS ORDERED: Albuterol Sulfate 2.5 mg/0.5 ml Neb ONE (11:20)
[2019-03-19] MEDS ORDERED: predniSONE 20 MG TAB ONE (12:14)
== END 2019-03-19 14:16 | disposition home or self-care (01) ==
LOC: ERS 10:03
DX: J44.1 Chronic obstructive pulmonary disease with (acute) exacerbation (principal); I10 Essential (primary) hypertension; I48.91 Unspecified atrial fibrillation; F03.90 Unspecified dementia, unspecified severity, without behavioral disturbance, psychotic disturbance, mood disturbance, and anxiety; F32.9 Major depressive disorder, single episode, unspecified; Z79.899 Other long term (current) drug therapy
CPT/HCPCS: 71045; 80053; 84484; 85025; 94640; J7512; J7611; J7620